=== PATIENT | male | born 1940 | race Caucasian/White ===

== ENCOUNTER → 2019-03-15 14:00 | Outpatient (BNVA) | payer MEDICARE, OTHER, SELFPAY | PROVIDERS: Family Provider Family Medicine; PCP Family Medicine; Visit Provider Anesthesiology | DX: M54.16 Radiculopathy, lumbar region (principal); M47.816 Spondylosis without myelopathy or radiculopathy, lumbar region; M51.36 Other intervertebral disc degeneration, lumbar region; M54.2 Cervicalgia; M25.512 Pain in left shoulder; M19.90 Unspecified osteoarthritis, unspecified site; Z79.891 Long term (current) use of opiate analgesic | CPT/HCPCS: 99214 ==

== ENCOUNTER 2019-09-01 12:55 | Observation (INO) | payer MEDICARE, OTHER, SELFPAY ==
[2019-09-01 13:00] VITALS: BMI 31.6
[2019-09-01 13:04] VITALS: BP 143/80; PULSE 52; RESP 18; TEMP 37.1; O2SAT 97
[2019-09-01 13:11] VITALS: BP 143/80; PULSE 52; RESP 15; O2SAT 94
--- NOTE | 2019-09-01 13:25 | PC.NURSE ---
EKG done at 1325 and shown to ER doctor
--- NOTE | 2019-09-01 13:43 | XRR_ITS ---
PROCEDURE INFORMATION: Exam: XR Chest, 1 View Exam date and time: 09/01/2019 1:55 PM Age: 78 years old Clinical indication: Other: Bradycardia; Prior surgery; Surgery type: Lumbar TECHNIQUE: Imaging protocol: XR of the chest Views: 1 view. COMPARISON: CR Chest 1 [place] [id number] 03/24/2018 12:47 PM FINDINGS: Tubes, catheters and devices: Interval placement of thoracolumbar fixation hardware. Lungs: No acute infiltrate. Minor curvilinear scarring or atelectasis left lung base, unchanged. Pleural space: Unremarkable. No pleural effusion. No pneumothorax. Heart/Mediastinum: Unremarkable. No cardiomegaly. Vasculature: Tortuous aorta, chronic. Bones/joints: Unremarkable. XR/XR chest 1V portable [id number] IMPRESSION: No acute findings.
--- NOTE | 2019-09-01 13:45 | ECG_ITS ---
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 Measurements Intervals [place] Rate: 68 P: 201 AK: 179 QRS: 27 QRSD: 108 T: 10 QT: 425 QTc: 454 Interpretive Statements SINUS RHYTHM POSSIBLE RIGHT VENTRICULAR CONDUCTION DELAY [RSR (QR) IN V1/V2] Compared to ECG 03/24/2018 18:05:32 Sinus bradycardia no longer present First degree AV block no longer present Intraventricular conduction delay no longer present Electronically Signed On 09-01-2019 20:47:14 CDT by Nuria Carreon M.D. [id number]
--- NOTE | 2019-09-01 14:00 | ED_ITS ---
HPI - General Adult General: Chief complaint: General Medical Stated complaint: LOW HEART RATE Time Seen by Provider: 09/01/19 13:04 History of Present Illness: HPI narrative: Patient recently fell in the shower and broke multiple bones. He has home health taking care of him. Today his home health nurse found him to be bradycardic. Patient denies any symptoms whatsoever. Onset (ago): unknown Review of Systems General: Reports: 10 or more systems reviewed and unremarkable except in HPI and below PFSH ED PFSH: Medical History (Updated 09/01/19 @ 15:05 by Deepak Camargo DO) DDD (degenerative disc disease), lumbar Facet syndrome, lumbar Lumbar radicular pain Neck pain Osteoarthritis Pain in left shoulder Surgical History Status post total hip replacement, bilateral Family History Father Hypertension Other CAD (coronary artery disease) Social History Smoking and tobacco status: former smoker Alcohol intake: never Marital status: Physical Exam Const: COMMON NORMALS: no acute distress, healthy appearing and well nourished GENERAL APPEARANCE: cooperative and well developed HENMT: COMMON NORMALS: normocephalic and atraumatic HEAD & SCALP: normal to inspection, normocephalic and atraumatic Eye: GENERAL EYE: appearance normal, both eyes and all related structures Neck/C-Spine: COMMON NORMALS: full ROM, no lymphadenopathy and no meningeal signs GENERAL: Yes normal visual inspection CERVICAL SPINE: Yes cervical ROM normal and Yes normal cervical lordosis Chest: COMMONS NORMALS: normal inspection of the chest and normal palpation of entire chest wall Resp: COMMON NORMALS: normal respiratory effort, clear to auscultation bilaterally and percussion normal AUSCULTATION: clear to auscultation bilaterally PERCUSSION: percussion normal Cardio: JUGULAR VENOUS DISTENTION: no JVD PALPATION: normal PMI RATE: bradycardic RHYTHM: abnormal rhythm GI: COMMON NORMALS: Soft to palpation and No hepatosplenomegaly present INSPECTION: Yes normal to inspection PALPATION: Yes Soft to palpation and Yes No hepatosplenomegaly present PERCUSSION: normal to percussion : COMMON NORMALS: Yes no CVA tenderness BLADDER/KIDNEY EXAM: Yes no CVA tenderness Back/Pelvis: COMMON NORMALS: no CVA tenderness, thoracic and lumbar spine n ormal to inspection and thoraco-lumbar ROM normal Extremity: COMMON NORMALS: normal to inspection, full ROM and capillary refill normal Neuro: MENINGEAL SIGNS: Yes no meningeal signs Skin: COMMON NORMALS: no rashes or lesions noted, no wounds and turgor normal GENERAL SKIN EXAM: no rashes or lesions noted, elasticity normal and turgor normal LESIONS: no lesions RASHES: no rashes TRAUMA: no lacerations or abrasions HAIR: normal NAILS: normal Course Vital Signs: Vital signs: Vital Signs Temperature 98.7 F 09/01/19 13:04 Pulse Rate 52 L 09/01/19 13:11 Respiratory Rate 15 09/01/19 13:11 Blood Pressure 143/80 09/01/19 13:11 Pulse Oximetry 94 09/01/19 13:11 [facility] - General Adult Lab Data: Labs: Lab Results 09/01/19 09/01/19 09/01/19 Range/Units 13:30 13:30 13:30 WBC 8.3 (4.0-10.0) 10^3/ uL RBC 3.86 L (4.1-5.3) 10^6/u L Hgb 12.1 (11.7-16.6) g/dL Hct 38.6 L (42.0-52.0) % MCV 100.0 H (80-94) fL MCH 31.3 (28.0-34.0) pg MCHC 31.3 (30.0-36.0) g/dL RDW 14.3 (12.1-15.1) % Plt Count 292 (130-400) 10^3/c mm MPV 10.6 H (7.4-10.4) fL Neut % (Auto) 61.4 % Lymph % (Auto) 20.2 % [place] % (Auto) 9.3 % Eos % (Auto) 7.7 % Baso % (Auto) 0.7 % Neut # (Auto) 5.1 (1.8-7.7) 10^3/u L Lymph # (Auto) 1.7 (0.8-4.8) 10^3/u L [place] # (Auto) 0.8 (0.2-0.9) 10^3/u L Eos # (Auto) 0.6 (0.0-0.8) 10^3/u L Baso # (Auto) 0.1 (0.0-0.1) 10^3/u L Nucleated RBC % (a uto) 0 % Nucleated RBCs # 0.0 /100WBC PT 12.70 (10.5-13.3) SECO NDS INR 0.93 (0.8-1.2) Sodium 139 (136-145) mmol/L Potassium 4.5 (3.5-5.1) mmol/L Chloride 103 (98-107) mmol/L Carbon Dioxide 26 (22-29) mmol/L Anion Gap 14.5 (5-19) BUN 12 (8-23) mg/dL Creatinine 0.8 (0.7-1.2) mg/dL Glucose 151 H (65-115) mg/dL Calculated Osmolal ity 287 (285-295) mOsm/k g Lactate (0.5-2.2) mmol/L Calcium 9.6 (8.5-10.5) mg/dL Magnesium 2.0 (1.7-2.3) mg/dL Total Bilirubin 0.3 (0.15-1.2) mg/dL AST 13 (0-40) U/L ALT 10 (0-41) U/L Alkaline Phosphata se 111 (40-130) IU/L Troponin T Baselin e (0-15) ng/L NT-Pro-B Natriuret Pep 710 H (0-450) pg/mL Total Protein 6.7 (6.6-8.7) g/dL Albumin 3.8 (3.5-5.2) g/dL Globulin 2.9 (1.3-4.6) g/dL TSH 1.54 (0.27-4.20) uIU/ mL 09/01/19 09/01/19 Range/Units 13:30 14:13 WBC (4.0-10.0) 10^3/ uL RBC (4.1-5.3) 10^6/u L Hgb (11.7-16.6) g/dL Hct (42.0-52.0) % MCV (80-94) fL MCH (28.0-34.0) pg MCHC (30.0-36.0) g/dL RDW (12.1-15.1) % Plt Count (130-400) 10^3/c mm MPV (7.4-10.4) fL Neut % (Auto) % Lymph % (Auto) % [place] % (Auto) % Eos % (Auto) % Baso % (Auto) % Neut # (Auto) (1.8-7.7) 10^3/u L Lymph # (Auto) (0.8-4.8) 10^3/u L [place] # (Auto) (0.2-0.9) 10^3/u L Eos # (Auto) (0.0-0.8) 10^3/u L Baso # (Auto) (0.0-0.1) 10^3/u L Nucleated RBC % (a uto) % Nucleated RBCs # /100WBC PT (10.5-13.3) SECO NDS INR (0.8-1.2) Sodium (136-145) mmol/L Potassium (3.5-5.1) mmol/L Chloride (98-107) mmol/L Carbon Dioxide (22-29) mmol/L Anion Gap (5-19) BUN (8-23) mg/dL Creatinine (0.7-1.2) mg/dL Glucose (65-115) mg/dL Calculated Osmolal ity (285-295) mOsm/k g Lactate 1.3 (0.5-2.2) mmol/L Calcium (8.5-10.5) mg/dL Magnesium (1.7-2.3) mg/dL Total Bilirubin (0.15-1.2) mg/dL AST (0-40) U/L ALT (0-41) U/L Alkaline Phosphata se (40-130) IU/L Troponin T Baselin e 28 H (0-15) ng/L NT-Pro-B Natriuret Pep (0-450) pg/mL Total Protein (6.6-8.7) g/dL Albumin (3.5-5.2) g/dL Globulin (1.3-4.6) g/dL TSH (0.27-4.20) uIU/ mL Discharge Plan Discharge Patient Disposition: Admitted As Inpatient Clinical Impression: Cardiac dysrhythmia Qualifiers: Arrhythmia type: unspecified cardiac arrhythmia Qualified Code(s): I49.9 - Cardiac arrhythmia, unspecified Condition: Fair Referrals: Higinio Nelson DO [Primary Care Provider] - Coding Level of Care Code ED Care Director for Chg Fwd Exam Comprehensive
[2019-09-01 14:01] LABS: Basophils # 0.1 10^3/uL (0.0-0.1); Basophils % 0.7 %; Eosinophils # 0.6 10^3/uL (0.0-0.8); Eosinophils % 7.7 %; Hematocrit 38.6 % (42.0-52.0); Hemoglobin 12.1 g/dL (11.7-16.6); Lymphocytes # 1.7 10^3/uL (0.8-4.8); Lymphocytes % 20.2 %; Mean Corpuscular HGB Conc 31.3 g/dL (30.0-36.0); Mean Corpuscular Hemoglobin 31.3 pg (28.0-34.0); Mean Platelet Volume 10.6 fL (7.4-10.4); Monocytes # 0.8 10^3/uL (0.2-0.9); Monocytes % 9.3 %; Neutrophils # 5.1 10^3/uL (1.8-7.7); Neutrophils % 61.4 %; Nucleated Red Blood Cells % 0 %; Platelet Count 292 10^3/cmm (130-400); Red Blood Count 3.86 10^6/uL (4.1-5.3); Red Cell Distribution Width 14.3 % (12.1-15.1); White Blood Count 8.3 10^3/uL (4.0-10.0)
[2019-09-01 14:05] LABS: INR 0.93 (0.8-1.2)
[2019-09-01 14:16] LABS: Troponin(5th) Baseline 28 ng/L (0-15)
[2019-09-01 14:21] LABS: Alanine Aminotransferase 10 U/L (0-41); Albumin Level 3.8 g/dL (3.5-5.2); Alkaline Phosphatase 111 IU/L (40-130); Anion Gap 14.5 (5-19); Aspartate Amino Transferase 13 U/L (0-40); Blood Urea Nitrogen 12 mg/dL (8-23); Calcium 9.6 mg/dL (8.5-10.5); Carbon Dioxide 26 mmol/L (22-29); Chloride 103 mmol/L (98-107); Globulin 2.9 g/dL (1.3-4.6); Glucose 151 mg/dL (65-115); NT Pro B Type Natriuretic Pept 710 pg/mL (0-450); Osmolality Calculated 287 mOsm/kg (285-295); Potassium 4.5 mmol/L (3.5-5.1); Sodium 139 mmol/L (136-145); Thyroid Stimulating Hormone 1.54 uIU/mL (0.27-4.20); Total Bilirubin 0.3 mg/dL (0.15-1.2); Total Protein 6.7 g/dL (6.6-8.7)
[2019-09-01 14:44] LABS: Lactate (Lactic Acid level) 1.3 mmol/L (0.5-2.2)
--- NOTE | 2019-09-01 15:37 | PM.HP ---
Providers/Chief Complaint Primary Care Provider: Higinio Nelson DO Chief Complaint: LOW HEART RATE History of Present Illness Deepak Larkin is a 78 year old male with past medical history of hypertension, type 2 diabetes mellitus, A. 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 Patient denies of having any nausea, vomiting, chest pain, headache, dizziness but complains of occasional weakness. In the ER apparently on the telemetry as per the ER physician patient was having occasional blocks with Wenckebach. Unfortunately no EKGs available of the same. Hospitalist service was asked for patient's admission under observation. Blood work in the OR showed a normal white count of 8.3, hemoglobin of 12.1, no left left shift, INR of 0.9, sodium of 139, potassium of 4.5, creatinine of 0.8, lactate of 1.3, normal liver functions, baseline troponin of 28 with 2-hour delta of 6, proBNP of 710. Review of Systems Const: Denies: fever(s), chills, body aches, change in appetite, malaise, night sweats, diaphoresis, change in sleep pattern, daytime sleepiness or snoring Eyes: Denies: change in vision, blurry vision, photophobia, eye discomfort or eye discharge ENMT: Denies: throat pain, enlarged tonsils, hoarseness, mouth pain, oral sores, dry mouth, tinnitus, nasal congestion or post nasal drip Card: Denies: chest pain, palpitations, irregular heart rhythm, edema, swelling of feet/ankles, lightheadedness, syncope, pre-syncope, dyspnea on exertion, orthopnea, leg pain with exertion or acrocyanosis Resp: Denies: dyspnea, productive cough, non-productive cough, wheezing, stridor, pain on inspiration, change in phlegm color, hemoptysis or chest congestion GI: Denies: abdominal pain, nausea, vomiting, hematemesis, coffee ground emesis, dysphagia, heartburn, diarrhea, constipation, bloating, GI cramping, change in bowel habits, pain on defecation, hematochezia or melena : Denies: flank pain, difficulty urinating, dysuria, urinary frequency, urinary urgency, urinary hesitancy, urinary dribbling, difficulty starting urination, change in urine stream, nocturia or hematuria Musc: Denies: neck pain, back pain, extremity pain, joint pain, joint swelling, joint redness, joint stiffness or limited range of motion Neuro: Denies: headache(s), numbness in extremities, weakness in extremities, sensory changes, lack of coordination, difficulty walking, frequent falls, dizziness, vertigo, confusion, Slurred speech present, difficulty communicating thoughts or seizure-like activity Psych: Denies: anxiety, depression, mood swings, panic attacks, hopelessness or irritability Endo: Denies: polyuria, polydipsia, tired all the time, cold intolerance, excessive sweating, flushing or heat intolerance Anam/Lymph: Denies: easy bruising or easy bleeding All/Imm: Denies: tongue swelling, facial swelling or acute wheezing Medications/Allergies Home Medications Medication Instructions Recorded Confirmed Last Taken Type amlodipine 10 mg tablet 10 mg PO ONCE 03/14/19 09/01/19 08/31/19 History aspirin 325 mg tablet 325 mg PO DAILY tab 03/14/19 09/01/19 09/01/19 History celecoxib 200 mg capsule 200 mg PO DAILY cap 03/14/19 09/01/19 08/31/19 History losartan 50 mg tablet 50 mg PO BID 03/14/19 09/01/19 08/31/19 History multivitamin 1 cap PO QAM 03/14/19 09/01/19 Unknown History nitroglycerin 0.4 mg sublingual 0.4 mg SUBLINGUAL Q5M PRN 03/14/19 09/01/19 Unknown History tablet omega-3 fatty acids 1,000 mg 1,000 mg PO BID 03/14/19 09/01/19 Unknown History capsule cyclobenzaprine 10 mg tablet 10 mg PO TID 30 Days #90 tab 03/15/19 09/01/19 08/31/19 Rx oxycodone 10 mg tablet 10 mg PO TID PRN 30 Days #90 tab 03/15/19 09/01/19 08/31/19 Rx tramadol 50 mg tablet 50 mg PO TID PRN 30 Days #90 tab 03/15/19 09/01/19 08/31/19 Rx insulin NPH and regular human See Rx Instructions .ROUTE .COMPLEX 09/01/19 09/01/19 Unknown History [Novolin 70/30 U-100 Insulin] Allergies Allergy/AdvReac Type Severity Reaction Status Date / Time JOE Inhibitors Allergy Unknown Verified 09/01/19 15:19 Vaywtwo-Lik-Lyb Reductase Allergy Unknown Verified 09/01/19 15:19 Inhibitor PFSH Acute PFSH: Medical History (Updated 09/01/19 @ 17:02 by Andrew Quintana MD) Aftercare following bilateral hip joint replacement surgery Atrial fibrillation AV block Chronic nonmalignant pain DDD (degenerative disc disease), lumbar Diabetes mellitus Facet syndrome, lumbar Hypertension Lumbar radicular pain Morbid obesity Muscle spasm of back Neck pain Osteoarthritis Other specified diseases of gallbladder Pain in left shoulder Psoriatic arthritis Sleep apnea Type 2 diabetes mellitus Surgical History (Updated 09/01/19 @ 15:39 by Mika Galarza MD) S/P cholecystectomy Status post total hip replacement, bilateral Family History Father Hypertension Other CAD (coronary artery disease) Social History Smoking and tobacco status: former smoker Alcohol intake: never Marital status: Vitals/I&O/Wt Last Vital Signs Temp 98.7 F 09/01/19 13:04 Pulse 52 L 09/01/19 13:11 Resp 15 09/01/19 13:11 BP 143/80 09/01/19 13:11 Pulse Ox 94 09/01/19 13:11 Weight last 48 hrs Weight 108.862 kg Physical Exam Narrative: EXAM NARRATIVE: General: No acute distress, AO x3, morbid obesity HEENT: PERRLA, pupils bilaterally equal and reactive Chest: Normal vesicular breath sounds, no added sounds, equal good air entry bilaterally CVS: S1-S2 regular, no murmurs, no tachycardia, no gallops, no rubs Abdomen: Soft, nontender, no organomegaly, bowel sounds present Neuro: No focal deficits, no facial deformity, AO x3, power 5/5 in all limbs Data : 09/01/19 13:30 09/01/19 13:30 A&P Assessment and plan (1) AV block: Status: Acute (2) Type 2 diabetes mellitus: Status: Acute (3) Hypertension: Status: Acute (4) Chronic nonmalignant pain: Status: Acute (5) Atrial fibrillation: Status: Acute Additional A&P Information AV block: Patient is not on any rate limiting drugs at present. He has a history of having similar episode last year but at that time he was on beta-clemente. Once beta-clemente was stopped he had converted to type I. EKG at present looks pretty much the same. Cardiology has been consulted by the ER. Most likely will admit patient under observation. Will monitor for advanced heart block, dizziness, chest pain, shortness of breath along with that. And if any present we will request for most likely pacemaker. For now we will monitor the patient. Hypertension: Continue home dose of amlodipine, losartan. Goal blood pressure 140/90 mmHg. Type 2 diabetes mellitus insulin sliding scale at high-dose AC and at bedtime. Carb consistent diet. Continue chronic pain medications. Full code. Cardiac carb consistent diet. Lovenox for DVT prophylaxis Attestations Medical Necessity Statement*: Observation. Less than 2 midnight for asymptomatic heart block Time Spent in Patient Care: Greater than 35 minutes (>than 50% of time spent in counselling and/or direct pt care on unit). Coding Level of Care Code Acute Printing Assistant for Jennifer Stafford Diagnoses AV block I44.30 Type 2 diabetes mellitus E11.9 Hypertension I10 Chronic nonmalignant pain G89.29 Atrial fibrillation I48.91
[2019-09-01 15:44] VITALS: BP 139/65; PULSE 68; RESP 21; O2SAT 94
--- NOTE | 2019-09-01 15:45 | ECG_ITS ---
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 Measurements Intervals [place] Rate: 57 P: MT: -1 QRS: 35 QRSD: 109 T: 28 QT: 441 QTc: 430 Interpretive Statements Probable A-V dissociation, possible third-degree heart block ABNORMAL RHYTHM ECG Compared to ECG 09/01/2019 13:30:53 Sinus rhythm no longer present Electronically Signed On 09-02-2019 7:26:40 CDT by Andrew Quintana M.D. [id number]
--- NOTE | 2019-09-01 16:16 | PC.NURSE ---
EKG done at 1615 and shown to ER doctor
[2019-09-01 16:44] LABS: Troponin 5 2HR 34.07 ng/L (0-15); Troponin 5 2HR Delta 6.07 ABS# (0-10)
--- NOTE | 2019-09-01 16:56 | P.CONIM_ITS ---
Providers/Reason For Consult Consulting Physican/Specialty*: Cardiovascular medicine Reason for Consult*: Bradycardia Primary Care Provider: Higinio Nelson DO History of Present Illness History of Present Illness Deepak Larkin is a 78 year old male who is being admitted because of a low heart rate. He is well-known to me from previous hospital stays and from a clinic visit or 2. About 18 months ago he was in the hospital with type II second- degree AV block. At that time his beta-clemente was discontinued and the higher degree AV block resolved. He did have some second-degree AV block type I. He has never had a syncopal episode. All of this was discovered inadvertently. Over the last 6 to 8 months he has been lost to follow-up. He still does not take any kind of AV alonzo blocking agents. In April of this year he fell off his roof from a height of about 12 feet fracturing his pelvis, several ribs, his back and had a head injury. He spent several weeks to almost 3 months in bed. He lost a lot of muscle mass and has been weak. He gets physical therapy at home. Today the physical therapist apparently noticed that his heart rate was in the 40s. The physical therapist called his office and was told to call an ambulance and bring the patient to the hospital. It is noteworthy that the patient is completely asymptomatic without dizziness, lightheadedness or other problems such as syncope. Since he has been in the emergency room he has had an EKG and several rhythm strips. He has sinus rhythm with the occasional long first- degree AV block. There may be some second-degree AV block type I but I see no high degree AV block on any of the strips or EKGs that we have so far. At some point in the chart there mentions atrial fibrillation but I do not recall ever seeing any documentation that he has atrial fibrillation. He is not anticoagulated. He also does not have any history of coronary disease and had a stress test a year or more ago which did not reveal any ischemia. He has hypertension and diabetes as well as morbid obesity and sleep apnea. He is apparently being admitted because of the bradycardia and I have been asked to see him. Meds/Allergies Home Medications and Allergies Home Medications Medication Instructions Recorded Confirmed Last Taken Type amlodipine 10 mg tablet 10 mg PO ONCE 03/14/19 09/01/19 08/31/19 History aspirin 325 mg tablet 325 mg PO DAILY tab 03/14/19 09/01/19 09/01/19 History celecoxib 200 mg capsule 200 mg PO DAILY cap 03/14/19 09/01/19 08/31/19 History losartan 50 mg tablet 50 mg PO BID 03/14/19 09/01/19 08/31/19 History multivitamin 1 cap PO QAM 03/14/19 09/01/19 Unknown History nitroglycerin 0.4 mg sublingual 0.4 mg SUBLINGUAL Q5M PRN 03/14/19 09/01/19 Unknown History tablet omega-3 fatty acids 1,000 mg 1,000 mg PO BID 03/14/19 09/01/19 Unknown History capsule cyclobenzaprine 10 mg tablet 10 mg PO TID 30 Days #90 tab 03/15/19 09/01/19 08/31/19 Rx oxycodone 10 mg tablet 10 mg PO TID PRN 30 Days #90 tab 03/15/19 09/01/19 08/31/19 Rx tramadol 50 mg tablet 50 mg PO TID PRN 30 Days #90 tab 03/15/19 09/01/19 08/31/19 Rx insulin NPH and regular human See Rx Instructions .ROUTE .COMPLEX 09/01/19 09/01/19 Unknown History [Novolin 70/30 U-100 Insulin] Allergies Allergy/AdvReac Type Severity Reaction Status Date / Time JOE Inhibitors Allergy Unknown Verified 09/01/19 15:19 Wnidavt-Vna-Wdx Reductase Allergy Unknown Verified 09/01/19 15:19 Inhibitor PFSH Acute PFSH: Medical History (Updated 09/01/19 @ 17:02 by Andrew Quintana MD) Aftercare following bilateral hip joint replacement surgery Atrial fibrillation AV block Chronic nonmalignant pain DDD (degenerative disc disease), lumbar Diabetes mellitus Facet syndrome, lumbar Hypertension Lumbar radicular pain Morbid obesity Muscle spasm of back Neck pain Osteoarthritis Other specified diseases of gallbladder Pain in left shoulder Psoriatic arthritis Sleep apnea Type 2 diabetes mellitus Surgical History (Updated 09/01/19 @ 15:39 by Mika Galarza MD) S/P cholecystectomy Status post total hip replacement, bilateral Family History Father Hypertension Other CAD (coronary artery disease) Social History (Reviewed 09/01/19 @ 14:01 by MELISSA Sweeney Smoking and tobacco status: former smoker Alcohol intake: never Marital status: Vitals/I&O/Wt Last Vital Signs Temp 98.7 F 09/01/19 13:04 Pulse 68 09/01/19 15:44 Resp 21 H 09/01/19 15:44 BP 139/65 09/01/19 15:44 Pulse Ox 94 09/01/19 15:44 Weight last 48 hrs Weight 240 lb Physical Exam Const: COMMON NORMALS: no acute distress, patient oriented x3 and alert GENERAL APPEARANCE: cooperative NUTRITIONAL APPEARANCE: obese HENMT: COMMON NORMALS: normocephalic, atraumatic, hearing grossly normal bilaterally, external ears normal, EAC's normal, TM's normal bilaterally, Normal external nose present, Normal nasal mucous membranes and turbinates present, moist oral mucous membranes, oropharynx normal, dentition normal and gingiva normal HEAD & SCALP: normocephalic and atraumatic NOSE: Normal external n ose present and Normal nasal mucous membranes and turbinates present EXTERNAL EAR: Yes external ears normal EXTERNAL AUDITORY CANAL: EAC's normal TYMPANIC MEMBRANE: TM's normal bilaterally Neck/C-Spine: COMMON NORMALS: no JVD Chest: COMMONS NORMALS: normal inspection of the chest Resp: COMMON NORMALS: normal respiratory effort, No retractions, No use of accessory muscles, clear to auscultation bilaterally and percussion normal AUSCULTATION: clear to auscultation bilaterally PERCUSSION: percussion normal Cardio: COMMON NORMALS: no JVD, regular rate, regular rhythm, S1 normal heart sound present, S2 normal heart sound present, No gallops present (Cardio), No clicks present (Cardio), No murmurs present (Cardio), No rub (Cardio) and Peripheral pulses 2+ throughout RATE: regular rate RHYTHM: regular rhythm HEART SOUNDS: S1 normal heart sound present and S2 normal heart sound present PERIPHERAL PULSES: Peripheral pulses 2+ throughout GI: COMMON NORMALS: Normal to inspection, nondistended, normoactive bowel sounds present, Soft to palpation, non-tender, No hepatosplenomegaly present, no masses and no bruits PALPATION: Yes Soft to palpation and Yes No hepatosplenomegaly present Neuro: COMMON NORMALS: patient oriented x3, CN's II-XII intact bilaterally, moves all extremities, no focal motor deficits, no sensory deficits noted and deep tendon reflexes 2+ bilaterally SENSORIUM/ORIENTATION: Yes alert Skin: COMMON NORMALS: no rashes or lesions noted GENERAL SKIN EXAM: no rashes or lesions noted Data Other Data: Other data: EKG reveals a sinus rhythm with a right ventricular conduction delay or right bundle branch block but no high degree AV block. The second EKG reveals sinus rhythm with occasional long first-degree AV block and possibly brief periods of Wenke Bach. Troponin is 28. BNP 710. A&P Assessment and plan (1) AV block: Status: Acute (2) Type 2 diabetes mellitus: Status: Acute (3) Hypertension: Status: Acute (4) Chronic nonmalignant pain: Status: Acute (5) Neck pain: Status: Chronic (6) Lumbar radicular pain: Status: Chronic (7) Facet syndrome, lumbar: Status: Chronic (8) Morbid obesity: Status: Acute (9) Sleep apnea: Status: Acute Additional A&P Information At this point I see nothing that requires a pacemaker. At worst he has second- degree AV block type II. I do not see any QRS complex and does not have a P wave associated. To my knowledge she is not on any AV alonzo blocking agents. He has no symptoms such as dizziness, lightheadedness, presyncope or syncope. I would monitor him overnight and if he has no high degree block send him home. Consult Attestations Medical Necessity Statement: Not applicable Coding Level of Care Code Acute Critical Power Technician for [facility] Fwd History Detailed Exam Detailed Medical Decision Making Moderate Complexity Diagnoses AV block I44.30 Type 2 diabetes mellitus E11.9 Hypertension I10 Chronic nonmalignant pain G89.29 Neck pain M54.2 Lumbar radicular pain M54.16 Facet syndrome, lumbar M47.816 Morbid obesity E66.01 Sleep apnea G47.30
[2019-09-01 19:20] VITALS: BP 154/85; PULSE 58; RESP 19; O2SAT 96
--- NOTE | 2019-09-01 19:45 | ECG_ITS ---
[facility] Test Date: 2019-09-01 Pat Name: Deepak Larkin Department: Room: Gender: Male Core Dipper: : 1940 Requested By: Deepak Muhammad Order Number: [id number] Hansa MD: Andrew Quintana M.D. Measurements Intervals [place] Rate: 63 P: CT: -1 QRS: 27 QRSD: 125 T: 12 QT: 449 QTc: 460 Interpretive Statements Probable A-V dissociation, possible third-degree heart block MODERATE INTRAVENTRICULAR CONDUCTION DELAY [110+ ms QRS DURATION] ABNORMAL RHYTHM ECG Compared to ECG 09/01/2019 16:14:06 Intraventricular conduction delay now present Electronically Signed On 09-02-2019 7:26:58 CDT by Andrew Quintana M.D. [email or web address]
[2019-09-01 20:00] VITALS: BP 137/85; PULSE 64; RESP 18; TEMP 37.1; O2SAT 97
[2019-09-01 20:11] LABS: D Dimer 2.21 ug/mIFEU (0-0.59)
[2019-09-01 20:12] LABS: Troponin 5 6HR 28.65 ng/L (0-15); Troponin 5 6HR Delta 0.65 ng/L (0-12)
--- NOTE | 2019-09-01 20:22 | PC.NURSE ---
EKG done at 1952 and shown to ER doctor
--- NOTE | 2019-09-01 20:29 | PC.NURSE ---
Blood glucose is 118, nurse and doctor notified
[2019-09-01 20:32] LABS: Glucose Point of Care 118 mg/dL (70-110)
[2019-09-01 20:35] VITALS: BP 156/76; PULSE 60; RESP 16; O2SAT 97
[2019-09-01 20:39] LABS: Thyroid Stimulating Hormone 1.24 uIU/mL (0.27-4.20)
--- NOTE | 2019-09-01 23:00 | PC.NURSE ---
Pt to room from ER via stretcher. Unable to assess pt's skin completely. Pt stated it hurt too bad to roll over for me to see his backside but did state his butt does hurt and he wanted some cream for it. Placed moisture barrier at bedside. Will attempt to assess again later.
[2019-09-01] MEDS: enoxaparin 40 mg/0.4 mL Syringe SUBCUT (23:56)
[2019-09-01] MEDS: cyclobenzaprine 10 mg Tablet PO (23:56)
[2019-09-01] MEDS: losartan 50 mg Tablet PO (23:56)
[2019-09-01] MEDS: omega-3 fatty acids 1,000 mg Capsule 1000 MG PO (23:56)
[2019-09-02] VITALS (11 sets, daily range): BP systolic 129–157; BP diastolic 69–87; PULSE 66–82; RESP 11–20; TEMP 36.8–37.3; O2SAT 92–96
[2019-09-02 02:57] LABS: Iron 53 ug/dL (59-158)
[2019-09-02] MEDS: ipratropium-albuterol 3 mL Neb INHALATION ×2 (04:08→09:33)
[2019-09-02 04:28] LABS: Basophils # 0.1 10^3/uL (0.0-0.1); Basophils % 0.6 %; Eosinophils # 0.6 10^3/uL (0.0-0.8); Hematocrit 39.9 % (42.0-52.0); Hemoglobin 12.9 g/dL (11.7-16.6); Lymphocytes # 1.8 10^3/uL (0.8-4.8); Lymphocytes % 22.3 %; Mean Corpuscular HGB Conc 32.3 g/dL (30.0-36.0); Mean Corpuscular Hemoglobin 31.9 pg (28.0-34.0); Mean Corpuscular Volume 98.8 fL (80-94); Mean Platelet Volume 10.3 fL (7.4-10.4); Monocytes # 0.7 10^3/uL (0.2-0.9); Monocytes % 8.4 %; Neutrophils # 4.8 10^3/uL (1.8-7.7); Neutrophils % 61.2 %; Nucleated Red Blood Cells % 0 %; Platelet Count 254 10^3/cmm (130-400); Red Blood Count 4.04 10^6/uL (4.1-5.3); Red Cell Distribution Width 14.2 % (12.1-15.1); White Blood Count 7.8 10^3/uL (4.0-10.0)
[2019-09-02 04:49] LABS: Alanine Aminotransferase 7 U/L (0-41); Albumin Level 3.6 g/dL (3.5-5.2); Alkaline Phosphatase 101 IU/L (40-130); Anion Gap 15.8 (5-19); Aspartate Amino Transferase 12 U/L (0-40); Blood Urea Nitrogen 10 mg/dL (8-23); Calcium 9.6 mg/dL (8.5-10.5); Carbon Dioxide 25 mmol/L (22-29); Chloride 106 mmol/L (98-107); Globulin 3.2 g/dL (1.3-4.6); Glucose 149 mg/dL (65-115); Osmolality Calculated 295 mOsm/kg (285-295); Phosphorus 3.7 mg/dL (2.5-4.5); Potassium 3.8 mmol/L (3.5-5.1); Sodium 143 mmol/L (136-145); Total Bilirubin 0.5 mg/dL (0.15-1.2); Total Protein 6.8 g/dL (6.6-8.7)
[2019-09-02 04:50] LABS: Estmated Average Glucose 137; Hemoglobin A1C 6.4 % (4.0-6.0)
[2019-09-02 06:40] LABS: Glucose Point of Care 141 mg/dL (70-110)
[2019-09-02 07:09] LABS: Percent Saturation 21.9 % (20-50); Total Iron Binding Capacity 242 mcg/dl; Unsaturated Iron Binding 189 ug/dL (112-347)
--- NOTE | 2019-09-02 07:10 | P.PN_ITS ---
Subjective Subjective: Interval history: Deepak is had an uneventful night. There are couple strips which show third-degree AV block with a narrow complex escape rhythm. He remains asymptomatic with these and has a normal blood pressure. Vitals/I&O/Wt Last Vital Signs Temp 98.3 F 09/02/19 04:00 Pulse 66 09/02/19 04:14 Resp 17 09/02/19 04:09 BP 129/72 09/02/19 04:00 Pulse Ox 96 09/02/19 04:14 09/01/19 09/02/19 09/02/19 22:59 06:59 14:59 Intake Total 0 / 0 200 / 200 Output Total 0 / 0 700 / 700 Balance 0 / 0 -500 / -500 Weight last 48 hrs Weight 287 lb 3.2 oz Weight 240 lb Physical Exam Narrative: EXAM NARRATIVE: GENERAL: In general he looks and feels well HEENT: Exam within normal limits. NECK: Supple without jugular vein distention. The carotid upstroke is normal without bruits. BACK: Exam normal. LUNGS: Clear. HEART: Regular rate and rhythm. ABDOMEN: Benign without organomegaly or tenderness. EXTREMITIES: No edema. NEUROLOGIC: Exam normal. SKIN: Unremarkable. Data : 09/02/19 03:50 09/02/19 03:50 A&P Assessment and plan (1) Sleep apnea: Status: Acute (2) Morbid obesity: Status: Acute (3) AV block: Status: Acute (4) Type 2 diabetes mellitus: Status: Acute (5) Hypertension: Status: Acute Additional A&P Information Now that third-degree heart block has been seen he will need a pacemaker. This clearly does not need to be done while he is in the hospital right now. It is a holiday weekend and so he may go home and we will schedule this as an outpatient for him. My office will call him on Thursday to set this up electively. He wishes to go home because he spent 5 months in a fci after the fall in April and is not interested in staying in the hospital to wait. I think it is safe to go home since his blood pressure is fine and he is not having any symptoms. 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
[2019-09-02] MEDS: aspirin 325 mg Tablet PO (09:50)
[2019-09-02] MEDS: CELEcoxib 200 mg Capsule PO (09:50)
[2019-09-02] MEDS: omega-3 fatty acids 1,000 mg Capsule 1000 MG PO (09:50)
[2019-09-02] MEDS: amlodipine 10 mg Tablet PO (09:50)
[2019-09-02] MEDS: losartan 50 mg Tablet PO (09:50)
[2019-09-02] MEDS: cyclobenzaprine 10 mg Tablet PO (09:50)
--- NOTE | 2019-09-02 09:50 | PC.CHAP ---
Pastoral Care Encounter/Spiritual Assessment Type of Contact [] Declined open hearth laborer visit [] Patient/Family/Request visit [] Outpatient visit [] Follow-up visit [] Physician referral [] Code/Alert [x] Routine visit [] Staff referral [] Actively dying [] Patient sleeping [] Family support [] [] Out of room [] Palliative care [] [] Receiving care in room [] Pre-surgical visit [] Trauma [] Long length of stay [] ICU visit [] Other: Relational/Emotional Strength [] Patient feels connected with others/family/visitors/staff [] Distress [] Loneliness/isolation [] Abandonment Spirituality of Patient [] Person of Stefani [] Attends Uatsdin of their Stefani [] Believes in Prayer [] Reads Bible or Zoroastrian materials [] There are Spiritual issues to be addressed Sludge Filtration Attendant Interventions [x] Prayer [x] Active listening [x] Non-anxious presence [x] Spiritual/emotional support [] Crisis/trauma care [] Spiritual counseling [] Bereavement support [] Provided bereavement packet [] Provided Bible/devotional materials [] Provided toy/stuffed animal, coloring book to patient or family member [] Provided Communion [] Anointing/[place] [] Salvation [x] Completed spiritual assessment [] Other: Impact on Illness or Injury [] Angry [] Fearful [] Anxious [] Often cries [] Exhaustion [] Unable to work [] Unable to attend mormonism [] Unable to walk/stand [] Unable to read [] Unable to drive [] Unable to eat/drink [] Unable to sleep [] Unable to be with family [] Patient intubated [] Other: Summary Patient feeling stronger, resting well Time spent with patient 10 min
--- NOTE | 2019-09-02 09:51 | P.DS_ITS ---
Discharge Providers Date of Admission: 09/01/19 15:06 Date of Discharge: September 02, 2019 Attending Provider at Admission: Mika Galarza MD Attending Provider at Discharge: Mika Galarza MD Consults: Cardiology: Dr. Quintana Primary Care Provider: Higinio Nelson DO Diagnoses at Discharge Discharge Diagnosis (1) Sleep apnea: Status: Acute (2) Morbid obesity: Status: Acute (3) AV block: Status: Acute (4) Type 2 diabetes mellitus: Status: Acute (5) Hypertension: Status: Acute Reason for Visit Reason for Visit: LOW HEART RATE Hospital Course Discharge Summary: Deepak Larkin is a 78 year old male with past medical hist ory of hypertension, type 2 diabetes mellitus, A. 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 Patient denies of having any nausea, vomiting, chest pain, headache, dizziness but complains of occasional weakness. In the ER apparently on the telemetry as per the ER physician patient was having occasional blocks with Wenckebach. Unfortunately no EKGs available of the same. Hospitalist service was asked for patient's admission under observation. Blood work in the ER showed a normal white count of 8.3, hemoglobin of 12.1, no left left shift, INR of 0.9, sodium of 139, potassium of 4.5, creatinine of 0.8, lactate of 1.3, normal liver functions, baseline troponin of 28 with 2-hour delta of 6, proBNP of 710. Cardiology was consulted. Patient was admitted under observation. Overnight patient remained stable without having any nausea, vomiting, chest pain, dizziness. Overnight his telemetry showed few strips going into third-degree AV block. This was confirmed with cardiology. Patient needs a pacemaker now that the third-degree AV block is evident. Patient would most likely get the pacemaker coming week. Patient did not want to wait for so long while being in hospital and would like to go home. Possible discharge was confirmed with cardiology. As per cardiology it is safe for patient to go home since his blood pressures are fine and he is not having any symptoms. He is been discharged hemodynamically stable condition and patient will be getting a call on Thursday from cardiology office to set up appointment for pacemaker implantation. Physical Exam Narrative: EXAM NARRATIVE: General: No acute distress, AO x3, morbid obesity HEENT: PERRLA, pupils bilaterally equal and reactive Chest: Normal vesicular breath sounds, no added sounds, equal good air entry bilaterally CVS: S1-S2 regular, no murmurs, no tachycardia, no gallops, no rubs Abdomen: Soft, nontender, no organomegaly, bowel sounds present Neuro: No focal deficits, no facial deformity, AO x3, power 5/5 in all limbs Discharge Data Data Completed and Pending: Completed Studies During Hospitalization Category Date Time Status XR chest 1V selena ble [id number] Urgent Exams 09/01/19 13:43 Completed Pending at discharge Category Date Time Status MRSA by PCR De ne Lab 09/02/19 03:55 Received Labs from last 24 hours 09/02/19 09/02/19 09/02/19 06:36 03:50 03:50 WBC RBC Hgb Hct MCV MCH MCHC RDW Plt Count MPV Neut % (Auto) Lymph % (Auto) Edwards % (Auto) Eos % (Auto) Baso % (Auto) Neut # (Auto) Lymph # (Auto) Edwards # (Auto) Eos # (Auto) Baso # (Auto) Nucleated RBC % (a uto) Nucleated RBCs # PT INR D-Dimer Sodium 143 Potassium 3.8 Chloride 106 Carbon Dioxide 25 Anion Gap 15.8 BUN 10 Creatinine 0.7 Glucose 149 H POC Glucose 141 Estimat Average Gl ucose 137 Hemoglobin A1c 6.4 H Calculated Osmolal ity 295 Lactate Calcium 9.6 Phosphorus 3.7 Magnesium 2.0 Iron TIBC % Saturation Unsat Iron Binding Total Bilirubin 0.5 AST 12 ALT 7 Alkaline Phosphata se 101 Troponin I 6 Hour Troponin I Hi Sens Del Troponin T Baselin e Troponin T 120 Min [place] Delta Troponin T NT-Pro-B Natriuret Pep Total Protein 6.8 Albumin 3.6 Globulin 3.2 TSH 09/02/19 09/01/19 09/01/19 03:50 20:27 19:45 WBC 7.8 RBC 4.04 L Hgb 12.9 Hct 39.9 L MCV 98.8 H MCH 31.9 MCHC 32.3 RDW 14.2 Plt Count 254 MPV 10.3 Neut % (Auto) 61.2 Lymph % (Auto) 22.3 Edwards % (Auto) 8.4 Eos % (Auto) 7.0 Baso % (Auto) 0.6 Neut # (Auto) 4.8 Lymph # (Auto) 1.8 Edwards # (Auto) 0.7 Eos # (Auto) 0.6 Baso # (Auto) 0.1 Nucleated RBC % (a uto) 0 Nucleated RBCs # 0.0 PT INR D-Dimer Sodium Potassium Chloride Carbon Dioxide Anion Gap BUN Creatinine Glucose POC Glucose 118 Estimat Average Gl ucose Hemoglobin A1c Calculated Osmolal ity Lactate Calcium Phosphorus Magnesium Iron 53 L TIBC 242 % Saturation 21.9 Unsat Iron Binding 189 Total Bilirubin AST ALT Alkaline Phosphata se Troponin I 6 Hour Troponin I Hi Sens Del Troponin T Baselin e Troponin T 120 Min [place] Delta Troponin T NT-Pro-B Natriuret Pep Total Protein Albumin Globulin TSH 09/01/19 09/01/19 09/01/19 19:45 19:45 15:48 WBC RBC Hgb Hct MCV MCH MCHC RDW Plt Count MPV Neut % (Auto) Lymph % (Auto) Edwards % (Auto) Eos % (Auto) Baso % (Auto) Neut # (Auto) Lymph # (Auto) Edwards # (Auto) Eos # (Auto) Baso # (Auto) Nucleated RBC % (a uto) Nucleated RBCs # PT INR D-Dimer Sodium Potassium Chloride Carbon Dioxide Anion Gap BUN Creatinine Glucose POC Glucose Estimat Average Gl ucose Hemoglobin A1c Calculated Osmolal ity Lactate Calcium Phosphorus Magnesium Iron TIBC % Saturation Unsat Iron Binding Total Bilirubin AST ALT Alkaline Phosphata se Troponin I 6 Hour 28.65 H Troponin I Hi Sens Del 0.65 Troponin T Baselin e Troponin T 120 Min [place] 34.07 H Delta Troponin T 6.07 NT-Pro-B Natriuret Pep Total Protein Albumin Globulin TSH 1.24 09/01/19 09/01/19 09/01/19 14:13 13:30 13:30 WBC RBC Hgb Hct MCV MCH MCHC RDW Plt Count MPV Neut % (Auto) Lymph % (Auto) Edwards % (Auto) Eos % (Auto) Baso % (Auto) Neut # (Auto) Lymph # (Auto) Edwards # (Auto) Eos # (Auto) Baso # (Auto) Nucleated RBC % (a uto) Nucleated RBCs # PT INR D-Dimer 2.21 H Sodium Potassium Chloride Carbon Dioxide Anion Gap BUN Creatinine Glucose POC Glucose Estimat Average Gl ucose Hemoglobin A1c Calculated Osmolal ity Lactate 1.3 Calcium Phosphorus Magnesium Iron TIBC % Saturation Unsat Iron Binding Total Bilirubin AST ALT Alkaline Phosphata se Troponin I 6 Hour Troponin I Hi Sens Del Troponin T Baselin e 28 H Troponin T 120 Min [place] Delta Troponin T NT-Pro-B Natriuret Pep Total Protein Albumin Globulin TSH 09/01/19 09/01/19 09/01/19 13:30 13:30 13:30 WBC 8.3 RBC 3.86 L Hgb 12.1 Hct 38.6 L MCV 100.0 H MCH 31.3 MCHC 31.3 RDW 14.3 Plt Count 292 MPV 10.6 H Neut % (Auto) 61.4 Lymph % (Auto) 20.2 Edwards % (Auto) 9.3 Eos % (Auto) 7.7 Baso % (Auto) 0.7 Neut # (Auto) 5.1 Lymph # (Auto) 1.7 Edwards # (Auto) 0.8 Eos # (Auto) 0.6 Baso # (Auto) 0.1 Nucleated RBC % (a uto) 0 Nucleated RBCs # 0.0 PT 12.70 INR 0.93 D-Dimer Sodium 139 Potassium 4.5 Chloride 103 Carbon Dioxide 26 Anion Gap 14.5 BUN 12 Creatinine 0.8 Glucose 151 H POC Glucose Estimat Average Gl ucose Hemoglobin A1c Calculated Osmolal ity 287 Lactate Calcium 9.6 Phosphorus Magnesium 2.0 Iron TIBC % Saturation Unsat Iron Binding Total Bilirubin 0.3 AST 13 ALT 10 Alkaline Phosphata se 111 Troponin I 6 Hour Troponin I Hi Sens Del Troponin T Baselin e Troponin T 120 Min [place] Delta Troponin T NT-Pro-B Natriuret Pep 710 H Total Protein 6.7 Albumin 3.8 Globulin 2.9 TSH 1.54 Vitals: Last Vital Signs Temp 99.2 F 09/02/19 09:35 Pulse 79 09/02/19 09:35 Resp 18 09/02/19 09:35 BP 147/78 09/02/19 09:50 Pulse Ox 96 09/02/19 09:35 Discharge Plan Discharge Patient Disposition: Home, Self-Care Condition: Fair Prescriptions: Continued cyclobenzaprine 10 mg tablet 10 mg PO TID 30 Days Qty: 90 RF: 1 tramadol 50 mg tablet 50 mg PO TID PRN (Reason: pain) 30 Days Qty: 90 RF: 1 oxycodone 10 mg tablet 10 mg PO TID PRN (Reason: pain) 30 Days Qty: 90 RF: 0 celecoxib [Celebrex] 200 mg capsule 200 mg PO DAILY RF: 0 nitroglycerin [Nitrostat] 0.4 mg tablet, sublingual 0.4 mg SUBLINGUAL Q5M PRN (Reason: chests pains) RF: 0 losartan 50 mg tablet 50 mg PO BID RF: 0 aspirin 325 mg tablet 325 mg PO DAILY RF: 0 multivitamin Capsule 1 cap PO QAM RF: 0 amlodipine [Norvasc] 10 mg tablet 10 mg PO ONCE RF: 0 omega-3 fatty acids [Fish Oil Concentrate] 1,000 mg capsule 1,000 mg PO BID RF: 0 Novolin 70/30 U-100 Insulin 100 unit/mL (70-30) Suspension See Rx Instructions .ROUTE .COMPLEX RF: 0 Discharge Orders: Discharge Order (Routine); Ordered 09/02/19 Ordered By: Mika Galarza Referrals: Andrew Quintana MD [Physician] - 4-7 days Higinio Nelson DO [Primary Care Provider] - 4-7 days Discharge Diet: Cardiac Discharge Activity: Resume usual activity Activity Restrictions/Additional Instructions: If you have any dizziness, nausea, vomiting, shortness of breath please check your heart rate and come to the ER. Please avoid driving, going on heights as you are at high risk of fall. Cardiology office will be calling you on Thursday to set up an appointment for pacemaker implantation. Discharge Attestations Time Spent in Discharge Care*: greater than 30 min Specific Discharge Activities: Specific discharge activities: educating patient, discussing with pcp/other providers, discussing with patient case coordinator/social workers/dc planners, documenting/other paperwork and evaluating patient/reviewing data Status at Discharge: Cognitive status at discharge: cognitively intact , Behavioral status at discharge: cooperative , Functional status at discharge: independent ambulation Overall status at discharge: patient is back to baseline Quality Metrics Clinical Quality Measures During this hospital stay, did patient experience: None Coding Level of Care Code 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
--- NOTE | 2019-09-02 14:16 | PC.NURSE ---
Addendum entered by Radha Chester RN 09/02/19 16:26: Patient stated to son and she asked me if I was sure I was ready to go home and I told her I was ready to go home son then stated well every patient wants to go home Original Note: patient has been discharged home by both cardiology and hospitalist; family called to come get the patient; Patients son Jaime Larkin jr expresses concerns of patient not being stable enough to come home. This nurse expressed family concerns to the provider Dr luu; Familys contact information given to provider; provider reports he will call the family and speak with them. this nurse contacted by Dr hein; doctor reports no answer and a message was left. Upon taking patient to private vehicle to family; Son demands a copy of the signed discharge order. son states there will be legal action taken and i need the signed order for my city carrier assistant. This nurse explained the discharge paper work to the son; also that it does not have a doctors order on it. Son demands a copy of the order signed by the doctor contacted lending activities supervisor to speak with family.
== END 2019-09-02 14:00 | disposition home or self-care (01) ==
LOC: ER 15:05 → CSU 16:20 → ER 17:05 → CSU 21:30
PROVIDERS: Family Medicine; Admitting Provider Student in an Organized Health Care Education/Training Program; Family Provider Family Medicine; PCP Family Medicine; Visit Provider Student in an Organized Health Care Education/Training Program
DX: I44.30 Unspecified atrioventricular block (principal); E11.9 Type 2 diabetes mellitus without complications; I10 Essential (primary) hypertension; G89.29 Other chronic pain; I48.91 Unspecified atrial fibrillation; G47.30 Sleep apnea, unspecified; E66.01 Morbid (severe) obesity due to excess calories; Z68.37 Body mass index [BMI] 37.0-37.9, adult; M19.90 Unspecified osteoarthritis, unspecified site; Z82.49 Family history of ischemic heart disease and other diseases of the circulatory system; Z87.891 Personal history of nicotine dependence; M54.2 Cervicalgia; M54.16 Radiculopathy, lumbar region
CPT/HCPCS: 12345; 36415; 36416; 71045; 80053; 82962; 83036; 83540; 83550; 83605; 83735; 83880; 84100; 84443; 84484; 85025; 85378; 85610; 87641; 93005; 94640; 96372; 96374; 96376; 97161; 99283; 99285; G0378; J1650

== ENCOUNTER 2019-10-11 08:15 | Emergency (ER) | payer MEDICARE, OTHER, SELFPAY ==
[2019-10-11 08:18] VITALS: BP 124/77; PULSE 88; RESP 18; TEMP 37.3; O2SAT 99; BMI 36.3
--- NOTE | 2019-10-11 08:31 | ED_ITS ---
HPI - General Adult General: Chief complaint: General Medical Stated complaint: BLEEDING FROM SURGERY SITE Time Seen by Provider: 10/11/19 08:17 History of Present Illness: HPI narrative: 78-year-old male has bleeding on the left side of the belt line at the level of the ASIS. Began overnight. He previous had a pelvic fracture with open reduction internal fixation. He has been pinpoint area with active drainage of serosanguineous fluid. There is no arterial bleeding. In an attempt to examine patient we had him sit up which took the assist of 2 we made an attempt to have him stand but were unable to accomplish that with the assist of 3 Onset (ago): hour(s) Location: pelvis Severity: mild Relieving factors: none Exacerbating factors: none Associated symptoms: Reports no associated symptoms; Deny chest pain, cough, diaphoresis, decreased appetite, dyspnea, fevers/chills, headache(s), malaise, nausea, rash, palpitations, seizures, short of breath, syncope, vomiting or weakness Treatments prior to arrival: none Review of Systems Const: Denies: malaise or diaphoresis ENMT: Denies: throat pain, ear or mastoid pain, nasal discharge or nasal congestion Card: Denies: chest pain, palpitations or syncope Resp: Denies: dyspnea GI: Denies: nausea or vomiting : Denies: flank pain, dysuria, urinary frequency or urinary urgency Skin/Breast: Denies: rash Neuro: Denies: headache(s) [facility] ED PFSH: Medical History Aftercare following bilateral hip joint replacement surgery Atrial fibrillation AV block Chronic nonmalignant pain DDD (degenerative disc disease), lumbar Diabetes mellitus Facet syndrome, lumbar Hypertension Lumbar radicular pain Morbid obesity Muscle spasm of back Neck pain Osteoarthritis Other specified diseases of gallbladder Pain in left shoulder Psoriatic arthritis Sleep apnea Type 2 diabetes mellitus Surgical History S/P cholecystectomy Status post total hip replacement, bilateral Family History Father Hypertension Other CAD (coronary artery disease) Social History Smoking and tobacco status: former smoker Alcohol intake: never Marital status: Physical Exam Const: COMMON NORMALS: no acute distress ORIENTATION/CONSCIOUSNESS: Yes awake, Yes oriented to person, Yes oriented to place and Yes oriented to time HENMT: COMMON NORMALS: normocephalic and atraumatic HEAD & SCALP: normocephalic and atraumatic Eye: COMMON NORMALS: Equal, round and reactive pupils present, EOMs intact bilaterally, conjunctivae normal and no scleral icterus CONJUNCTIVA: Yes conjunctivae normal PUPIL: Yes Equal, round and reactive pupils present Neck/C-Spine: COMMON NORMALS: full ROM, no lymphadenopathy, supple and no JVD Lymph: LYMPHATIC: no lymphadenopathy noted and no lymphedema noted Resp: COMMON NORMALS: normal respiratory effort, No retractions, No use of accessory muscles and clear to auscultation bilaterally AUSCULTATION: clear to auscultation bilaterally Cardio: COMMON NORMALS: no JVD, regular rate, regular rhythm and No murmurs present (Cardio) RATE: regular rate RHYTHM: regular rhythm GI: COMMON NORMALS: Soft to palpation and No hepatosplenomegaly present AUSCULTATION: Yes normoactive bowel sounds PALPATION: Yes Soft to palpation, No Tenderness to palpation present (GI), No Guarding due to palpation present (GI) and Yes No hepatosplenomegaly present Back/Pelvis: OTHER: Punctate area of bleeding right anterior superior iliac spine under the pannus. Controlled with direct pressure but resumes. Serosanguineous drainage no signs of infection in the area no purulent drainage. No fluctuance noted. Bulky bandage and direct pressure applied. Extremity: COMMON NORMALS: normal to inspection, capillary refill normal, no clubbing, cyanosis or edema, no calf tenderness and no pedal edema Neuro: SENSORIUM/ORIENTATION: Yes oriented to person, Yes oriented to place and Yes oriented to time Course Vital Signs: Vital signs: Vital Signs Temperature 99.6 F 10/11/19 11:08 Pulse Rate 79 10/11/19 11:08 Respiratory Rate 18 10/11/19 11:26 Blood Pressure 123/73 10/11/19 11:08 Pulse Oximetry 97 10/11/19 11:08 MDM - General Adult MDM Narrative: Medical decision making narrative: Called and discussed Dr. Stein is on-call for Dr. Davies who originally placed these fixators. Described the findings to him they asked that he be transferred to [facility] in [place]. We do not have anyone in orthopedic staff who manages these sorts of problems so he is transferred for definitive care for this particular problem additionally continuity of care since they placed the originals. They will evaluate him in the ER there discussed with the patient expressed understanding Lab Data: Labs: Lab Results 10/11/19 10/11/19 10/11/19 Range/Units 08:45 08:45 08:45 WBC 18.1 H (4.0-10.0) 10^3/ uL RBC 4.28 (4.1-5.3) 10^6/u L Hgb 13.8 (11.7-16.6) g/dL Hct 42.4 (42.0-52.0) % MCV 99.1 H (80-94) fL MCH 32.2 (28.0-34.0) pg MCHC 32.5 (30.0-36.0) g/dL RDW 12.9 (12.1-15.1) % Plt Count 417 H (130-400) 10^3/c mm MPV 9.4 (7.4-10.4) fL Neut % (Auto) 79.4 % Lymph % (Auto) 8.9 % Green % (Auto) 5.1 % Eos % (Auto) 1.2 % Baso % (Auto) 0.5 % Neut # (Auto) 14.34 H (1.8-7.7) 10^3/u L Lymph # (Auto) 1.6 (0.8-4.8) 10^3/u L Green # (Auto) 0.9 (0.2-0.9) 10^3/u L Eos # (Auto) 0.2 (0.0-0.8) 10^3/u L Baso # (Auto) 0.1 (0.0-0.1) 10^3/u L Nucleated RBC % (a uto) 0 % Nucleated RBCs # 0.0 /100WBC PT 13.10 (12.1-14.9) SECO NDS INR 0.97 (0.8-1.2) APTT 28.4 (23.9-36.7) SECO NDS Sodium 139 (136-145) mmol/L Potassium 3.8 (3.5-5.1) mmol/L Chloride 98 (98-107) mmol/L Carbon Dioxide 27 (22-29) mmol/L Anion Gap 17.8 (5-19) BUN 17 (8-23) mg/dL Creatinine 1.1 (0.7-1.2) mg/dL GFR Calculation Not Reportable Glucose 162 H (65-115) mg/dL Calculated Osmolal ity 288 (285-295) mOsm/k g Calcium 9.4 (8.5-10.5) mg/dL Total Bilirubin 0.7 (0.15-1.2) mg/dL AST 20 (0-40) U/L ALT 18 (0-41) U/L Alkaline Phosphata se 138 H (40-130) IU/L Total Protein 8.0 (6.6-8.7) g/dL Albumin 3.6 (3.5-5.2) g/dL Globulin 4.4 (1.3-4.6) g/dL Discharge Plan Discharge Patient Disposition: Transfer to ED Clinical Impression: Hematoma, Pressure ulcer, Pelvic fracture Prescriptions: No Action cyclobenzaprine 10 mg tablet 10 mg PO TID 30 Days Qty: 90 RF: 1 tramadol 50 mg tablet 50 mg PO TID PRN (Reason: pain) 30 Days Qty: 90 RF: 1 oxycodone 10 mg tablet 10 mg PO TID PRN (Reason: pain) 30 Days Qty: 90 RF: 0 nitroglycerin [Nitrostat] 0.4 mg tablet, sublingual 0.4 mg SUBLINGUAL Q5M PRN (Reason: chests pains) RF: 0 losartan 50 mg tablet 50 mg PO BID RF: 0 aspirin 325 mg tablet 325 mg PO DAILY RF: 0 multivitamin Capsule 1 cap PO QAM RF: 0 amlodipine [Norvasc] 10 mg tablet 10 mg PO DAILY RF: 0 Novolin 70/30 U-100 Insulin 100 unit/mL (70-30) Suspension See Rx Instructions .ROUTE .COMPLEX RF: 0 celecoxib 200 mg capsule 200 mg PO DAILY RF: 0 chlorthalidone 25 mg tablet 25 mg PO DAILY RF: 0 Vitamin C 1 tab PO DAILY RF: 0 Referrals: Higinio Nelson DO [Primary Care Provider] - Interventions: ED Discharge Assessment Last Done: 10/11/19 11:08 ED Charges Last Done: 10/11/19 11:08 Discharge Date/Time: 10/11/19 12:31 Coding Level of Care Code ED Concaver for Chg Fwd Exam Comprehensive
--- NOTE | 2019-10-11 08:51 | US_ITS ---
WS: [id number] INDICATION: Ultrasound soft tissue TECHNIQUE: Ultrasound soft tissue in right hip. FINDINGS: Echogenic complex hematoma seen around the hardware at the anterosuperior iliac spine. Anam padma measures 3.8 x 5.4 x 4.6 cm. No evidence of drainable abscess or fluid collection. US/US soft tissue/extremity [id number] IMPRESSION: Echogenic hematoma about the hardware anterior superior iliac spine . No drainable fluid collection.
--- NOTE | 2019-10-11 08:51 | XRR_ITS ---
PROCEDURE INFORMATION: Exam: XR Pelvis Exam date and time: 10/11/2019 9:21 AM Age: 78 years old Clinical indication: Condition or disease; Other: Previous pelvic fracture, ; prior surgery; Additional info: Previous pelvic fracture, bleeding TECHNIQUE: Imaging protocol: XR pelvis. Views: 1 or 2 view. COMPARISON: No relevant prior studies available. FINDINGS: Bones/joints: Prior bilateral hip arthroplasties. Two long screws bridging the sacroiliac joints and body of the sacrum. Suspect an external fixator with screws in the iliac bone bilaterally. The hardware appears intact. Evidence of prior pubic rami fractures bilaterally. Multilevel disc degeneration and facet arthropathy in the lower lumbar spine. Soft tissues: No acute soft tissue abnormality. XR/XR pelvis min 3V [id number] IMPRESSION: Posttraumatic, postsurgical, and degenerative changes.
[2019-10-11 09:01] LABS: Basophils # 0.1 10^3/uL (0.0-0.1); Basophils % 0.5 %; Eosinophils # 0.2 10^3/uL (0.0-0.8); Eosinophils % 1.2 %; Hematocrit 42.4 % (42.0-52.0); Hemoglobin 13.8 g/dL (11.7-16.6); Lymphocytes # 1.6 10^3/uL (0.8-4.8); Lymphocytes % 8.9 %; Mean Corpuscular HGB Conc 32.5 g/dL (30.0-36.0); Mean Corpuscular Hemoglobin 32.2 pg (28.0-34.0); Mean Corpuscular Volume 99.1 fL (80-94); Mean Platelet Volume 9.4 fL (7.4-10.4); Monocytes # 0.9 10^3/uL (0.2-0.9); Monocytes % 5.1 %; Neutrophils # 14.34 10^3/uL (1.8-7.7); Neutrophils % 79.4 %; Nucleated Red Blood Cells % 0 %; Platelet Count 417 10^3/cmm (130-400); Red Blood Count 4.28 10^6/uL (4.1-5.3); Red Cell Distribution Width 12.9 % (12.1-15.1); White Blood Count 18.1 10^3/uL (4.0-10.0)
[2019-10-11 09:13] LABS: INR 0.97 (0.8-1.2)
[2019-10-11 09:14] LABS: Partial Thromboplastin Time 28.4 SECONDS (23.9-36.7)
[2019-10-11 09:20] LABS: Alanine Aminotransferase 18 U/L (0-41); Albumin Level 3.6 g/dL (3.5-5.2); Alkaline Phosphatase 138 IU/L (40-130); Anion Gap 17.8 (5-19); Aspartate Amino Transferase 20 U/L (0-40); Blood Urea Nitrogen 17 mg/dL (8-23); Calcium 9.4 mg/dL (8.5-10.5); Carbon Dioxide 27 mmol/L (22-29); Chloride 98 mmol/L (98-107); Globulin 4.4 g/dL (1.3-4.6); Glucose 162 mg/dL (65-115); Osmolality Calculated 288 mOsm/kg (285-295); Potassium 3.8 mmol/L (3.5-5.1); Sodium 139 mmol/L (136-145); Total Bilirubin 0.7 mg/dL (0.15-1.2)
--- NOTE | 2019-10-11 10:17 | PC.NURSE ---
PATIENT UP ON BEDSIDE COMMODE WITH ASSIST
[2019-10-11] MEDS: vancomycin 1,000 MG in sodium chloride 0.9% 250 ML 250 MG IV (10:46)
[2019-10-11 11:08] VITALS: BP 123/73; PULSE 79; RESP 18; TEMP 37.6; O2SAT 97
[2019-10-11 11:26] VITALS: RESP 18
[2019-10-11] MEDS: morphine 4 mg/mL SDV 1 mL 2 MG IVP (11:26)
== END 2019-10-11 12:31 ==
LOC: ER 08:40
PROVIDERS: Emergency Provider Family Medicine; PCP Family Medicine
DX: S32.9XXA Fracture of unspecified parts of lumbosacral spine and pelvis, initial encounter for closed fracture (principal); L89.90 Pressure ulcer of unspecified site, unspecified stage; Z79.82 Long term (current) use of aspirin; Z79.4 Long term (current) use of insulin; I48.91 Unspecified atrial fibrillation; E11.9 Type 2 diabetes mellitus without complications; I10 Essential (primary) hypertension; Z87.891 Personal history of nicotine dependence; Z96.643 Presence of artificial hip joint, bilateral; X58.XXXA Exposure to other specified factors, initial encounter
CPT/HCPCS: 12345; 72190; 76882; 80053; 85025; 85610; 85730; 87040; 87077; 87186; 87205; 96365; 96375; 99282; 99285; J2270; J3370; J7050

== ENCOUNTER → 2019-12-28 13:59 | Outpatient (BNVA) | payer MEDICARE, OTHER, SELFPAY | PROVIDERS: PCP Family Medicine; Visit Provider Anesthesiology | DX: M47.816 Spondylosis without myelopathy or radiculopathy, lumbar region (principal); M54.16 Radiculopathy, lumbar region; M51.36 Other intervertebral disc degeneration, lumbar region; M54.2 Cervicalgia; Z79.891 Long term (current) use of opiate analgesic | CPT/HCPCS: 99214 ==

== ENCOUNTER → 2020-02-23 09:44 | Outpatient (BNVA) | payer MEDICARE, OTHER, SELFPAY | PROVIDERS: PCP Family Medicine; Visit Provider Anesthesiology | DX: M47.816 Spondylosis without myelopathy or radiculopathy, lumbar region (principal); M51.36 Other intervertebral disc degeneration, lumbar region; M54.16 Radiculopathy, lumbar region; M54.2 Cervicalgia; M25.512 Pain in left shoulder; Z79.891 Long term (current) use of opiate analgesic | CPT/HCPCS: 99214 ==

== ENCOUNTER → 2020-04-20 12:12 | Outpatient (BNVA) | payer MEDICARE, OTHER, SELFPAY | PROVIDERS: PCP Family Medicine; Visit Provider Nurse Practitioner | DX: M54.2 Cervicalgia (principal); M25.512 Pain in left shoulder; M51.36 Other intervertebral disc degeneration, lumbar region; M47.816 Spondylosis without myelopathy or radiculopathy, lumbar region; M54.16 Radiculopathy, lumbar region; M19.90 Unspecified osteoarthritis, unspecified site; Z79.891 Long term (current) use of opiate analgesic | CPT/HCPCS: 99213; 99214 ==

== ENCOUNTER → 2020-06-27 14:01 | Outpatient (BNVA) | payer MEDICARE, OTHER, SELFPAY | PROVIDERS: PCP Family Medicine; Visit Provider Anesthesiology | DX: G89.29 Other chronic pain (principal); M51.36 Other intervertebral disc degeneration, lumbar region; M47.816 Spondylosis without myelopathy or radiculopathy, lumbar region; M54.16 Radiculopathy, lumbar region; M54.2 Cervicalgia; M25.512 Pain in left shoulder; M19.90 Unspecified osteoarthritis, unspecified site; Z79.891 Long term (current) use of opiate analgesic | CPT/HCPCS: 99214 ==

== ENCOUNTER → 2020-08-10 11:16 | Outpatient (BNVA) | payer MEDICARE, OTHER, SELFPAY | PROVIDERS: PCP Family Medicine; Visit Provider Nurse Practitioner | DX: M51.36 Other intervertebral disc degeneration, lumbar region (principal); M47.816 Spondylosis without myelopathy or radiculopathy, lumbar region; M54.16 Radiculopathy, lumbar region; M54.2 Cervicalgia; M25.512 Pain in left shoulder; M19.90 Unspecified osteoarthritis, unspecified site; Z79.891 Long term (current) use of opiate analgesic | CPT/HCPCS: 99213 ==

== ENCOUNTER → 2020-09-07 11:35 | Outpatient (BNVA) | payer MEDICARE, OTHER, SELFPAY | PROVIDERS: PCP Family Medicine; Visit Provider Anesthesiology | DX: G89.29 Other chronic pain (principal); M51.36 Other intervertebral disc degeneration, lumbar region; M54.16 Radiculopathy, lumbar region; M47.816 Spondylosis without myelopathy or radiculopathy, lumbar region; M25.511 Pain in right shoulder; Z79.891 Long term (current) use of opiate analgesic; Z87.891 Personal history of nicotine dependence | CPT/HCPCS: 99214 ==

== ENCOUNTER → 2020-11-08 13:03 | Outpatient (BNVA) | payer MEDICARE, OTHER, SELFPAY | PROVIDERS: PCP Family Medicine; Visit Provider Anesthesiology | DX: G89.29 Other chronic pain (principal); M51.36 Other intervertebral disc degeneration, lumbar region; M54.16 Radiculopathy, lumbar region; M47.816 Spondylosis without myelopathy or radiculopathy, lumbar region; M54.2 Cervicalgia; M25.512 Pain in left shoulder; M25.511 Pain in right shoulder; M19.90 Unspecified osteoarthritis, unspecified site; Z79.891 Long term (current) use of opiate analgesic | CPT/HCPCS: 99214 ==

== ENCOUNTER → 2021-01-18 12:32 | Outpatient (BNVA) | payer MEDICARE, OTHER, SELFPAY | PROVIDERS: PCP Family Medicine; Visit Provider Anesthesiology | DX: G89.29 Other chronic pain (principal); M51.36 Other intervertebral disc degeneration, lumbar region; M47.816 Spondylosis without myelopathy or radiculopathy, lumbar region; M54.16 Radiculopathy, lumbar region; M54.2 Cervicalgia; M25.512 Pain in left shoulder; M25.511 Pain in right shoulder; M19.90 Unspecified osteoarthritis, unspecified site; Z79.891 Long term (current) use of opiate analgesic; Z79.899 Other long term (current) drug therapy | CPT/HCPCS: 99214 ==

== ENCOUNTER → 2021-03-19 14:00 | Outpatient (BNVA) | payer MEDICARE, OTHER, SELFPAY | PROVIDERS: PCP Family Medicine; Visit Provider Anesthesiology | DX: G89.29 Other chronic pain (principal); M51.36 Other intervertebral disc degeneration, lumbar region; M54.16 Radiculopathy, lumbar region; M47.816 Spondylosis without myelopathy or radiculopathy, lumbar region; M54.2 Cervicalgia; M19.90 Unspecified osteoarthritis, unspecified site; Z79.891 Long term (current) use of opiate analgesic | CPT/HCPCS: 99214 ==

== ENCOUNTER → 2021-06-26 14:30 | Outpatient (BNVA) | payer MEDICARE, OTHER, SELFPAY | PROVIDERS: PCP Family Medicine; Visit Provider Internal Medicine Cardiovascular Disease | DX: I48.0 Paroxysmal atrial fibrillation (principal); I10 Essential (primary) hypertension; G47.33 Obstructive sleep apnea (adult) (pediatric); E66.9 Obesity, unspecified; Z68.41 Body mass index [BMI] 40.0-44.9, adult; I44.30 Unspecified atrioventricular block; E11.65 Type 2 diabetes mellitus with hyperglycemia; Z87.891 Personal history of nicotine dependence; Z79.4 Long term (current) use of insulin | CPT/HCPCS: 99213; 99214 ==

== ENCOUNTER 2021-09-13 06:14 | Outpatient (CLI) | payer MEDICARE, OTHER, SELFPAY ==
--- NOTE | 2021-09-13 06:50 | CT_ITS ---
WS: [id number] CT HEAD NONCONTRAST HISTORY: CONFUSION TECHNIQUE: Contiguous axial imaging performed through the brain in 2.5 mm imaging. Bone and soft tiss ue windows. Sagittal and coronal reformats reviewed. All CT scans at [facility] use at least one of these dose optimization techniques: automated exposure control; mA and/or kV adjustment per pa tient size (includes targeted exams where dose is matched to clinical indication); or iterative recon struction. DLP: 583.78 mGy.cm COMPARISON: 03/12/2018 No acute intracranial hemorrhage, midline shift or mass effect. Mild atrophy and small vessel ischemic disease. No sulcal effacement. Prior lacunar infarcts in the b amita ganglia bilaterally. Mild progression of small vessel disease since the prior study. Ventricles: Ventricles are mildly prominent on the basis of atrophy. No significant progression sinc e the prior exam. Paranasal sinuses: As visualized are clear. Mastoid air cells: Well pneumatized. Calvarium and scalp: Skull is intact with no soft tissue edema or swelling. CT/CT head wo con* [id number] IMPRESSION: 1. No acute intracranial hemorrhage or edema. 2. Atrophy and small vessel ischemic disease with small bilateral basal gangli a lacunar infarcts. Minimal progression since the prior study.
--- NOTE | 2021-09-13 06:51 | CT_ITS ---
WS: [id number] CT CERVICAL SPINE, noncontrast HISTORY: CERVICAL WITHOUT RADICULOPATHY TECHNIQUE: Contiguous 2.0 mm axial imaging performed through the entire cervical spine. Sagittal and coronal reformats also performed. All CT scans at [facility] use at least one of these dose o ptimization techniques: automated exposure control; mA and/or kV adjustment per patient size (include s targeted exams where dose is matched to clinical indication); or iterative reconstruction. DLP: 434.67 mGy.cm COMPARISON: 03/18/2018 Straightening of the normal cervical lordosis. Slight reversal centered in the lower cervical spine. Disc spaces are mildly narrowed and desiccated. Moderate osteophytosis within the cervical spine. No fractures. C2-C3: Osteophytic ridging with central disc protrusion. Disc extends into the proximal foramen causi ng mild LEFT foraminal stenosis. C3-C4: Diffuse osteophytic ridging with severe bilateral facet arthritis. Osteophytic encroachment up on the ventral canal. Degenerative subchondral cystic changes in the LEFT facet joint. Moderate cent ral and bilateral foraminal stenosis. C4-C5: Osteophytes and facet disease resulting in moderate central with severe foraminal stenosis. C5-C6: Diffuse osteophytic ridging and large osteophytes encroach into the thecal sac and foramina. S evere central and RIGHT foraminal stenosis and moderate LEFT foraminal stenosis. C6-C7: Osteophytic ridging encroaching on the RIGHT lateral thecal sac. Central and bilateral foramin al stenosis is significant. C7-T1: Osteophytic ridging with severe RIGHT foraminal stenosis and moderate LEFT. Stenosis continues into the RIGHT foramina at T1-2. Calcification within the carotid arteries. CT/CT cervical spin wo con* [id number] IMPRESSION: 1. No acute fracture. 2. Severe multilevel areas of central and foraminal stenosis and facet joint a rthritis. There is been a significant progression of degenerative disc disease and stenoses since 2019. Most significant stenoses from C4-5 through C7-T1 as a isaias.
== END 2021-09-13 06:15 | disposition home or self-care (01) ==
PROVIDERS: PCP Family Medicine; Visit Provider Family Medicine
DX: R41.0 Disorientation, unspecified (principal); M54.12 Radiculopathy, cervical region; R60.9 Edema, unspecified; M48.02 Spinal stenosis, cervical region; M48.03 Spinal stenosis, cervicothoracic region
CPT/HCPCS: 70450; 72125

== ENCOUNTER → 2021-12-26 14:03 | Outpatient (BNVA) | payer MEDICARE, OTHER, SELFPAY | PROVIDERS: PCP Family Medicine; Visit Provider Internal Medicine Cardiovascular Disease | DX: I48.0 Paroxysmal atrial fibrillation (principal); I10 Essential (primary) hypertension; E11.65 Type 2 diabetes mellitus with hyperglycemia; Z79.4 Long term (current) use of insulin; E78.5 Hyperlipidemia, unspecified; G47.33 Obstructive sleep apnea (adult) (pediatric); Z87.891 Personal history of nicotine dependence | CPT/HCPCS: 99214 ==

== ENCOUNTER → 2022-01-31 09:09 | Outpatient (BNVA) | payer MEDICARE, OTHER, SELFPAY | PROVIDERS: PCP Family Medicine; Visit Provider Nurse Practitioner Family | DX: I96 Gangrene, not elsewhere classified (principal); E11.621 Type 2 diabetes mellitus with foot ulcer; L97.512 Non-pressure chronic ulcer of other part of right foot with fat layer exposed | CPT/HCPCS: 11042; 99213; A6021 ==

== ENCOUNTER → 2022-02-07 10:31 | Outpatient (BNVA) | payer MEDICARE, OTHER, SELFPAY | PROVIDERS: PCP Family Medicine; Visit Provider Nurse Practitioner Family | DX: I96 Gangrene, not elsewhere classified (principal); E11.621 Type 2 diabetes mellitus with foot ulcer; L89.892 Pressure ulcer of other site, stage 2 | CPT/HCPCS: 11042; A6021 ==

== ENCOUNTER → 2022-02-14 10:38 | Outpatient (BNVA) | payer MEDICARE, OTHER, SELFPAY | PROVIDERS: PCP Family Medicine; Visit Provider Surgery | DX: I96 Gangrene, not elsewhere classified (principal); E11.621 Type 2 diabetes mellitus with foot ulcer; L89.892 Pressure ulcer of other site, stage 2 | CPT/HCPCS: 11042; A6021 ==

== ENCOUNTER → 2022-02-28 13:14 | Outpatient (BNVA) | payer MEDICARE, OTHER, SELFPAY | PROVIDERS: PCP Family Medicine; Visit Provider Thoracic Surgery (Cardiothoracic Vascular Surgery) | DX: I96 Gangrene, not elsewhere classified (principal); E11.621 Type 2 diabetes mellitus with foot ulcer; L97.512 Non-pressure chronic ulcer of other part of right foot with fat layer exposed | CPT/HCPCS: 11042; A6021 ==

== ENCOUNTER → 2022-03-07 15:52 | Outpatient (BNVA) | payer MEDICARE, OTHER, SELFPAY | PROVIDERS: PCP Family Medicine; Visit Provider Thoracic Surgery (Cardiothoracic Vascular Surgery) | DX: I96 Gangrene, not elsewhere classified (principal); E11.621 Type 2 diabetes mellitus with foot ulcer; L89.892 Pressure ulcer of other site, stage 2 | CPT/HCPCS: 11042; A6021 ==

== ENCOUNTER → 2022-03-14 16:18 | Outpatient (BNVA) | payer MEDICARE, OTHER, SELFPAY | PROVIDERS: PCP Family Medicine; Visit Provider Thoracic Surgery (Cardiothoracic Vascular Surgery) | DX: I96 Gangrene, not elsewhere classified (principal); E11.621 Type 2 diabetes mellitus with foot ulcer; L97.512 Non-pressure chronic ulcer of other part of right foot with fat layer exposed | CPT/HCPCS: 11042; A6021 ==

== ENCOUNTER 2022-03-28 16:19 | Outpatient (CLI) | payer MEDICARE, OTHER, SELFPAY ==
--- NOTE | 2022-03-28 16:39 | XRR_ITS ---
PROCEDURE INFORMATION: Exam: XR Right Foot Exam date and time: 03/28/2022 4:46 PM Age: 81 years old Clinical indication: Condition or disease; Other: Infection on big toe; Additional info: E11.621 - type 2 diabetes mellitus with foot ulcer TECHNIQUE: Imaging protocol: Radiologic exam of the Right foot. Views: 3 or more views. COMPARISON: US soft tissue/extremity [id number] 10/11/2019 9:28 AM FINDINGS: Bones/joints: Decreased bone density in the phalanges of the 4th toe. Small hypodensity in the head of the 4th distal metatarsal. 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 The other bones are intact. Degenerative changes of the intertarsal joints. Soft tissues: Severe soft tissue swelling of the dorsal foot, toes, ankle, and lower leg. Vasculature: Arterial calcifications. XR/XR foot RT min 3V* [id number] IMPRESSION: 1. Decreased bone density in the phalanges of the 4th toe and in the head of the distal 4th metatarsal. Osteomyelitis cannot be excluded. Follow-up with MRI should be considered. 2. 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
== END 2022-03-28 16:20 | disposition home or self-care (01) ==
LOC: RAD 16:28
PROVIDERS: PCP Family Medicine; Visit Provider Thoracic Surgery (Cardiothoracic Vascular Surgery)
DX: I96 Gangrene, not elsewhere classified (principal); E11.621 Type 2 diabetes mellitus with foot ulcer; L89.892 Pressure ulcer of other site, stage 2
CPT/HCPCS: 11042; 73630; 87070; 87077; 87176; 87186; 87205

== ENCOUNTER → 2022-04-04 13:02 | Outpatient (BNVA) | payer MEDICARE, OTHER, SELFPAY | PROVIDERS: PCP Family Medicine; Visit Provider Thoracic Surgery (Cardiothoracic Vascular Surgery) | DX: I96 Gangrene, not elsewhere classified (principal); E11.621 Type 2 diabetes mellitus with foot ulcer; L97.512 Non-pressure chronic ulcer of other part of right foot with fat layer exposed | CPT/HCPCS: 11042 ==

== ENCOUNTER → 2022-04-11 13:13 | Outpatient (BNVA) | payer MEDICARE, OTHER, SELFPAY | PROVIDERS: PCP Family Medicine; Visit Provider Thoracic Surgery (Cardiothoracic Vascular Surgery) | DX: I96 Gangrene, not elsewhere classified (principal); E11.621 Type 2 diabetes mellitus with foot ulcer; L89.892 Pressure ulcer of other site, stage 2 | CPT/HCPCS: 11042 ==

== ENCOUNTER 2022-04-16 14:40 | Outpatient (CLI) | payer MEDICARE, OTHER, SELFPAY ==
--- NOTE | 2022-04-16 15:15 | MR_ITS ---
WS: [id number] EXAMINATION: MR foot RT wo/w con [id number] ORDER DATE: 04/16/2022 3:29 PM COMPARISON: None. HISTORY: E11.621 - Type 2 diabetes mellitus with foot ulcer CONTRAST: None. TECHNIQUE: Sagittal T1, sagittal STIR, coronal PD, coronal T2, axial T1, axial T2, and axial PD imagi ng with fat saturation technique. Post gadolinium imaging includes axial T1, coronal T1, and sagittal T1 with fat saturation technique. FINDINGS: Diffuse soft tissue edema dorsal foot compatible with cellulitis. No drainable abscess or f luid collection. T1 fatty bone marrow signal is preserved in the 4th phalanges and 4th metatarsal. Normal bone marrow signal in the metatarsals. Degenerative arthritis at the 1st MTP. Edema and enhanc ement extends into the deep intertarsal soft tissues. No drainable fluid collections. MR/MR foot RT wo/w con [id number] IMPRESSION: 1. No evidence of osteomyelitis in the 4th phalanges or metatarsals. 2. Diffuse cellulitis with intertarsal soft tissue infection. 3. No drainable abscess or fluid collection.
[2022-04-16] MEDS: gadobenate dimeglumine 20 mL vial IV (16:53)
== END 2022-04-16 14:41 | disposition home or self-care (01) ==
LOC: RAD 14:41
PROVIDERS: PCP Family Medicine; Visit Provider Thoracic Surgery (Cardiothoracic Vascular Surgery)
DX: E11.621 Type 2 diabetes mellitus with foot ulcer (principal); L97.509 Non-pressure chronic ulcer of other part of unspecified foot with unspecified severity; L03.031 Cellulitis of right toe
CPT/HCPCS: 73720; A9577

== ENCOUNTER → 2022-04-18 13:37 | Outpatient (BNVA) | payer MEDICARE, OTHER, SELFPAY | PROVIDERS: PCP Family Medicine; Visit Provider Thoracic Surgery (Cardiothoracic Vascular Surgery) | DX: I96 Gangrene, not elsewhere classified (principal); E11.621 Type 2 diabetes mellitus with foot ulcer; L89.892 Pressure ulcer of other site, stage 2 | CPT/HCPCS: 11042; A6250 ==

== ENCOUNTER → 2022-04-25 14:36 | Outpatient (BNVA) | payer MEDICARE, OTHER, SELFPAY | PROVIDERS: PCP Family Medicine; Visit Provider Thoracic Surgery (Cardiothoracic Vascular Surgery) | DX: I96 Gangrene, not elsewhere classified (principal); E11.621 Type 2 diabetes mellitus with foot ulcer; L97.512 Non-pressure chronic ulcer of other part of right foot with fat layer exposed | CPT/HCPCS: 11042 ==

== ENCOUNTER → 2022-05-09 13:44 | Outpatient (BNVA) | payer MEDICARE, OTHER, SELFPAY | PROVIDERS: PCP Family Medicine; Visit Provider Nurse Practitioner Family | DX: I96 Gangrene, not elsewhere classified (principal); E11.621 Type 2 diabetes mellitus with foot ulcer; L97.512 Non-pressure chronic ulcer of other part of right foot with fat layer exposed | CPT/HCPCS: 97597 ==

== ENCOUNTER → 2022-05-16 13:44 | Outpatient (BNVA) | payer MEDICARE, OTHER, SELFPAY | PROVIDERS: PCP Family Medicine; Visit Provider Nurse Practitioner Family | DX: I96 Gangrene, not elsewhere classified (principal); E11.621 Type 2 diabetes mellitus with foot ulcer; L89.892 Pressure ulcer of other site, stage 2 | CPT/HCPCS: 97597 ==

== ENCOUNTER → 2022-05-23 15:56 | Outpatient (BNVA) | payer MEDICARE, OTHER, SELFPAY | PROVIDERS: PCP Family Medicine; Visit Provider Nurse Practitioner Family | DX: I96 Gangrene, not elsewhere classified (principal); E11.621 Type 2 diabetes mellitus with foot ulcer; L97.512 Non-pressure chronic ulcer of other part of right foot with fat layer exposed | CPT/HCPCS: 11042; A6250 ==

== ENCOUNTER → 2022-05-29 15:11 | Outpatient (BNVA) | payer MEDICARE, OTHER, SELFPAY | PROVIDERS: PCP Family Medicine; Visit Provider Nurse Practitioner Family | DX: I96 Gangrene, not elsewhere classified (principal); E11.621 Type 2 diabetes mellitus with foot ulcer; L89.892 Pressure ulcer of other site, stage 2 | CPT/HCPCS: 97597 ==

== ENCOUNTER → 2022-06-02 10:10 | Outpatient (BNVA) | payer MEDICARE, OTHER, SELFPAY | PROVIDERS: PCP Family Medicine; Visit Provider Internal Medicine Cardiovascular Disease | DX: R01.1 Cardiac murmur, unspecified (principal); I48.0 Paroxysmal atrial fibrillation; G47.33 Obstructive sleep apnea (adult) (pediatric); I10 Essential (primary) hypertension; E11.621 Type 2 diabetes mellitus with foot ulcer; L97.509 Non-pressure chronic ulcer of other part of unspecified foot with unspecified severity; E78.5 Hyperlipidemia, unspecified; E66.01 Morbid (severe) obesity due to excess calories; R60.9 Edema, unspecified; Z79.82 Long term (current) use of aspirin; R06.02 Shortness of breath; Z68.41 Body mass index [BMI] 40.0-44.9, adult; Z79.4 Long term (current) use of insulin; Z87.891 Personal history of nicotine dependence | CPT/HCPCS: 99214 ==

== ENCOUNTER → 2022-06-06 13:50 | Outpatient (BNVA) | payer MEDICARE, OTHER, SELFPAY | PROVIDERS: PCP Family Medicine; Visit Provider Thoracic Surgery (Cardiothoracic Vascular Surgery) | DX: E11.621 Type 2 diabetes mellitus with foot ulcer (principal); L89.892 Pressure ulcer of other site, stage 2 | CPT/HCPCS: 97597 ==

== ENCOUNTER → 2022-06-13 14:26 | Outpatient (BNVA) | payer MEDICARE, OTHER, SELFPAY | PROVIDERS: PCP Family Medicine; Visit Provider Thoracic Surgery (Cardiothoracic Vascular Surgery) | DX: E11.621 Type 2 diabetes mellitus with foot ulcer (principal); L89.892 Pressure ulcer of other site, stage 2 | CPT/HCPCS: 99212 ==

== ENCOUNTER → 2022-06-17 16:02 | Outpatient (BNVA) | payer MEDICARE, OTHER, SELFPAY | PROVIDERS: PCP Family Medicine; Visit Provider Family Medicine | DX: E11.9 Type 2 diabetes mellitus without complications (principal); R60.9 Edema, unspecified; I10 Essential (primary) hypertension | CPT/HCPCS: 80053; 80061; 83036; 83880 ==

== ENCOUNTER 2022-06-27 11:31 | Outpatient (CLI) | payer MEDICARE, OTHER, SELFPAY ==
--- NOTE | 2022-06-27 11:30 | USCV_ITS ---
Juanisana luisa Deepak Age: 81 Gender: M : 1940 Exam Date: 06/27/2022 12:05 Ordering Phys: Sabiha Mae MD ([email or web address]) Technologist: Keila Pitt [place] [facility] [place]: chest pain BP: / HR: 103 Rhythm: Sinus Technical Quality: Adequate MEASUREMENTS (Male / Female) Normal Values 2D ECHO LV Diastolic Diameter PLAX 4.4 cm 4.2 - 5.9 / 3.9 - 5.3 cm LV Systolic Diameter PLAX 2.5 cm IVS Diastolic Thickness 1.7 cm 0.6 - 1.0 / 0.6 - 0.9 cm IVS Systolic Thickness 2.2 cm LVPW Diastolic Thickness 1.1 cm 0.6 - 1.0 / 0.6 - 0.9 cm LVPW Systolic Thickness 2.0 cm LVOT Diameter 2.1 cm LV Ejection Fraction 2D Teich 74.7 % LV Ejection Fraction MOD 2C 57.7 % LV Ejection Fraction 2C AL 57.2 % LA Diameter 3.4 cm Aorta at Sinotubular Diameter 4.2 cm M-MODE MV E Point Septal Separation 1.2 cm DOPPLER AV Peak Velocity 322.7 cm/s LVOT Peak Velocity 88.0 cm/s AV Area Cont Eq vti 1.0 cm squared AV Area Cont Eq pk 0.9 cm squared MV Peak Velocity 173.0 cm/s MV Area PHT 5.0 cm squared Mitral E to A Ratio 0.7 MV E' Velocity 109.0 cm/s TR Peak Velocity 131.0 cm/s TR Peak Gradient 6.9 mmHg Right Atrial Pressure 3.0 mmHg Pulmonary Artery Systolic Pressu 9.9 mmHg PV Peak Velocity 101.0 cm/s RV Acceleration Time 0.1 s RV Ejection Time 0.3 s RV AcT/ET 0.3 FINDINGS Left Ventricle Normal left ventricular size and systolic function, EF 60 %. No regional wall motion abnormalities. (Echo contrast - Optison was used to delineate the endocardium and to estimate the LV ejection fraction) Right Ventricle The right ventricle is normal in size and function. Right Atrium The right atrium is normal in size. Left Atrium Possibly of normal size Mitral Valve Severe mitral annular calcification. Aortic Valve Severe low gradient aortic valve stenosis, mean gradient 18.6 mmHg, SMITH 0.99 cm squared. Tricuspid Valve Tricuspid valve not well visualized. Pulmonic Valve Pulmonic valve not well visualized. Pericardium Normal pericardium without effusion. Aorta Normal ascending aorta dimension. IVC Inferior vena cava not visualized. CONCLUSIONS Normal left ventricular size and systolic function, EF 60 %. No regional wall motion abnormalities. (Echo contrast - Optison was used to delineate the endocardium and to estimate the LV ejection fraction). Severe low gradient aortic valve stenosis, mean gradient 18.6 mmHg, SMITH 0.99 cm squared. Severe mitral annular calcification. There is no pericardial effusion. There are no intracardiac masses. Technically difficult study Dr Sabiha Mae MD [facility] (Electronically Signed) Final Date: 04 Jul 2022 00:58 S
[2022-06-27] MEDS: perflutren protein-a microsphr 0.22 mg/mL SDV 3 mL IV (13:25)
== END 2022-06-27 11:32 | disposition home or self-care (01) ==
LOC: RAD 11:40
PROVIDERS: PCP Family Medicine; Visit Provider Internal Medicine Cardiovascular Disease
DX: I35.8 Other nonrheumatic aortic valve disorders (principal); I34.81 Nonrheumatic mitral (valve) annulus calcification; I73.9 Peripheral vascular disease, unspecified
CPT/HCPCS: 93925; C8929; Q9956

== ENCOUNTER 2022-06-27 11:43 | Outpatient (CLI) | payer MEDICARE, OTHER, SELFPAY ==
--- NOTE | 2022-06-27 14:15 | USCV_ITS ---
Trae Deepak Age: 81 Gender: M : 1940 Exam Date: 06/27/2022 12:39 Ordering Phys: Sabiha Mae MD ([email or web address]) Technologist: Monico Salmeron [place] [facility] [facility] [place]ication: pad Risk Factors: Previous Vascular Surgery: RIGHT LEFT BP: 130.0 / 78.00 BP: 129.0/ 72.00 0 0 Waveform Velocity (cm/s) Velocity (cm/s) Waveform Triphasic 130.1 Iliac Prox 102.5 Triphasic Triphasic 155.1 Iliac Mid 85.4 Triphasic Triphasic 117.0 Iliac Distal 86.3 Triphasic Triphasic 118.3 COSTUME CUTTER 89.7 Triphasic Triphasic 126.2 SFA Prox 89.7 Triphasic Triphasic 106.5 SFA Mid 92.3 Triphasic Triphasic 114.4 SFA Dist 88.9 Triphasic Triphasic 132.8 POP 92.3 Triphasic Monophasic 52.0 ALL TERRAIN VEHICLE TECHNICIAN 55.5 Monophasic Monophasic 53.0 DPA 45.3 Monophasic 0.6 SAMANTA 1.0 FINDINGS Mild diffuse plaque in the iliac and femoral artery on the right side. Triphasic waveforms throughout the vessels except the infrapopliteal arteries, which are found to have monophasic and continuous flow velocities Doppler waveforms Monophasic waveforms in the left infrapopliteal vessels Except for the infrapopliteal, all the other vessels were found to have triphasic waveforms CONCLUSIONS 1. Normal resting SAMANTA of 1.0 on the left side. 2. Abnormal resting SAMANTA of 0.6 on the right side, suggestive of moderate peripheral artery disease. 3. Possible infrapopliteal disease bilaterally Dr Sabiha Mae MD [facility] (Electronically Signed) Final Date: 04 Jul 2022 00:48 S
== END 2022-06-27 11:44 | disposition home or self-care (01) ==
LOC: RAD 11:44
PROVIDERS: PCP Family Medicine; Visit Provider Internal Medicine Cardiovascular Disease
DX: I73.9 Peripheral vascular disease, unspecified (principal)
CPT/HCPCS: 93925

== ENCOUNTER → 2022-07-08 15:14 | Outpatient (BNVA) | payer MEDICARE, OTHER, SELFPAY | PROVIDERS: PCP Family Medicine; Visit Provider Internal Medicine Cardiovascular Disease | DX: I35.0 Nonrheumatic aortic (valve) stenosis (principal); I77.9 Disorder of arteries and arterioles, unspecified; R60.9 Edema, unspecified; G47.33 Obstructive sleep apnea (adult) (pediatric); E11.42 Type 2 diabetes mellitus with diabetic polyneuropathy; I48.0 Paroxysmal atrial fibrillation; Z87.891 Personal history of nicotine dependence; Z79.4 Long term (current) use of insulin | CPT/HCPCS: 99214 ==

== ENCOUNTER → 2022-12-22 13:52 | Outpatient (BNVA) | payer MEDICARE, OTHER, SELFPAY | PROVIDERS: PCP Family Medicine; Visit Provider Nurse Practitioner Family | DX: I35.0 Nonrheumatic aortic (valve) stenosis (principal); I48.0 Paroxysmal atrial fibrillation; I10 Essential (primary) hypertension; R60.9 Edema, unspecified; Z87.891 Personal history of nicotine dependence | CPT/HCPCS: 99214 ==

== ENCOUNTER 2023-01-15 12:35 | Outpatient (CLI) | payer MEDICARE, OTHER, SELFPAY ==
--- NOTE | 2023-01-15 13:00 | USCV_ITS ---
Deepak Larkin Age: 82 Gender: M : 1940 Exam Date: 01/15/2023 12:53 Ordering Phys: Mayte Zavaleta Technologist: Exam Location: [facility] [place] Indication: as BP: 130 / 80 HR: 71 Rhythm: Sinus Technical Quality: Very technically difficult study MEASUREMENTS (Male / Female) Normal Values 2D ECHO LV Diastolic Diameter PLAX 3.8 cm 4.2 - 5.9 / 3.9 - 5.3 cm LV Systolic Diameter PLAX 2.7 cm IVS Diastolic Thickness 1.6 cm 0.6 - 1.0 / 0.6 - 0.9 cm IVS Systolic Thickness 2.0 cm LVPW Diastolic Thickness 1.4 cm 0.6 - 1.0 / 0.6 - 0.9 cm LVPW Systolic Thickness 1.7 cm LVOT Diameter 2.0 cm LV Ejection Fraction 2D Teich 58.3 % LA Diameter 4.2 cm M-MODE Aortic Annulus Diameter 4.6 cm LA Ao Ratio MM 1.0 MV E Point Septal Separation 1.1 cm DOPPLER RV Acceleration Time 0.1 s FINDINGS Left Ventricle The examination is poor and nearly uninterpretable. The ventricle is seen briefly in the parasternal long axis view only. There is probably normal ventricular size and function. Wall motion disturbances cannot be determined. Diastolic function cannot be determined. Right Ventricle Right ventricle not well visualized. Right Atrium Right atrium not well visualized. Left Atrium Left atrium not well visualized. Mitral Valve Mitral valve not well visualized. Aortic Valve Aortic valve is not well seen. Doppler interrogation could not be performed due to the patient's obesity. Visually, the valve does not look stenosed. There is some calcification. The 2D examination reveals the valve to open and close appropriately. Also, the M-mode evaluation appears to show the valve opening properly. Tricuspid Valve Tricuspid valve not well visualized. Pulmonic Valve Pulmonic valve not well visualized. Pericardium Aorta Aorta not well visualized. IVC Inferior vena cava not visualized. CONCLUSIONS The examination is poor and nearly uninterpretable. The ventricle is seen briefly in the parasternal long axis view only. There is probably normal ventricular size and function. Wall motion disturbances cannot be determined. Diastolic function cannot be determined. Aortic valve is not well seen. Doppler interrogation could not be performed due to the patient's obesity. Visually, the valve does not look stenosed. There is some calcification. The 2D examination reveals the valve to open and close appropriately. Also, the M-mode evaluation appears to show the valve opening properly. The previous echo done in June of this year suggested low gradient aortic valve stenosis. That cannot be corroborated on today's examination. If there is a concern for aortic stenosis the only way to sort this out is with a transesophageal echocardiogram. Dr. Andrew Quintana MD (Electronically Signed) Final Date: 15 January 2023 15:29 S
== END 2023-01-15 12:36 | disposition home or self-care (01) ==
LOC: RAD 12:35
PROVIDERS: PCP Family Medicine; Visit Provider Nurse Practitioner Family
DX: I35.0 Nonrheumatic aortic (valve) stenosis (principal)
CPT/HCPCS: 93306

== ENCOUNTER → 2023-02-11 13:06 | Outpatient (BNVA) | payer MEDICARE, OTHER, SELFPAY | PROVIDERS: PCP Family Medicine; Visit Provider Family Medicine | DX: E11.65 Type 2 diabetes mellitus with hyperglycemia (principal) | CPT/HCPCS: 85025 ==

== ENCOUNTER → 2023-03-06 10:03 | Outpatient (BNVA) | payer MEDICARE, OTHER, SELFPAY | PROVIDERS: PCP Family Medicine; Visit Provider Podiatrist Foot & Ankle Surgery | DX: L60.3 Nail dystrophy (principal); E11.42 Type 2 diabetes mellitus with diabetic polyneuropathy; I73.9 Peripheral vascular disease, unspecified; L84 Corns and callosities; E11.65 Type 2 diabetes mellitus with hyperglycemia; Z79.4 Long term (current) use of insulin | CPT/HCPCS: 11055; 11721; 99203 ==

== ENCOUNTER 2023-04-08 14:36 | Emergency (ER) | payer MEDICARE, OTHER, SELFPAY ==
[2023-04-08 14:39] VITALS: BP 165/66; PULSE 58; RESP 18; TEMP 36.7; O2SAT 94
--- NOTE | 2023-04-08 14:54 | ED_ITS ---
HPI - Fall General: Chief Complaint: Fall Stated Complaint: Fall Time Seen by Provider: 04/08/23 14:37 Source: patient and EMS Mode of arrival: EMS Limitations: no limitations History of Present Illness: 82-year-old male states he was trying to get into his truck and fell he has chronic pain from falling off a roof years ago states some some mild left knee and left shoulder pain he states he does not ambulate he has to use a power chair. Denies hitting his head denies any severe pain currently Associated symptoms-after fall: Denies abdominal pain, chest pain, headache(s) or neck pain Review of Systems Const: Denies: fever(s) or chills ENMT: Denies: throat pain or dental pain Card: Denies: chest pain Resp: Denies: dyspnea GI: Denies: abdominal pain, nausea, vomiting or diarrhea Musc: Reports: extremity pain; Denies: neck pain or back pain Skin/Breast: Denies: rash Neuro: Denies: headache(s) PFSH ED PFSH: Medical History History of spinal fracture History of rib fracture Sleep apnea Morbid obesity Atrial fibrillation Patient is vehemently opposed to take any oral anticoagulant. AV block Type 2 diabetes mellitus Hypertension Psoriatic arthritis Chronic nonmalignant pain Diabetes mellitus Osteoarthritis Facet syndrome, lumbar DDD (degenerative disc disease), lumbar Surgical History History of bilateral hip replacements History of cholecystectomy Family History Father Hypertension Stroke Mother CAD (coronary artery disease) Stroke Denies family history of Diabetes Clotting disorder Dementia Chronic kidney disease (CKD) Suicide Anesthesia complication Bleeding disorder Lung disease Cancer Social History Smoking and tobacco/nicotine status: former use of tobacco/nicotine Second hand smoke exposure: No Alcohol intake: never Substance/Drug Use: never Marital status: Number of children: 2 Current occupational status: retired 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 Physical Exam Const: COMMON NORMALS: no acute distress, patient oriented x3 and healthy appearing HENMT: COMMON NORMALS: normocephalic and atraumatic HEAD & SCALP: normocephalic and atraumatic Eye: COMMON NORMALS: Equal, round and reactive pupils present and EOMs intact bilaterally PUPIL: Yes Equal, round and reactive pupils present Neck/C-Spine: COMMON NORMALS: full ROM and supple Chest: COMMONS NORMALS: normal inspection of the chest and normal palpation of entire chest wall Resp: COMMON NORMALS: normal respiratory effort, No retractions, No use of accessory muscles and clear to auscultation bilaterally AUSCULTATION: clear to auscultation bilaterally Cardio: COMMON NORMALS: regular rate, regular rhythm and No murmurs present (Cardio) RATE: regular rate RHYTHM: regular rhythm GI: COMMON NORMALS: Normal to inspection, nondistended, normoactive bowel sounds present, Soft to palpation, non-tender and no masses PALPATION: Yes Soft to palpation Extremity: COMMON NORMALS: normal to inspection and full ROM Neuro: COMMON NORMALS: patient oriented x3, moves all extremities and no focal motor deficits Psych: COMMON NORMALS: mental status grossly normal, Normal thought process present and cooperative THOUGHT PROCESS: Normal thought process present Skin: COMMON NORMALS: no rashes or lesions noted and no wounds GENERAL SKIN EXAM: no rashes or lesions noted Course Vital Signs: Vital signs: Vital Signs Temperature 98.1 F 04/08/23 14:39 Pulse Rate 58 L 04/08/23 14:39 Respiratory Rate 18 04/08/23 14:39 Blood Pressure 165/66 04/08/23 14:39 Pulse Oximetry 94 04/08/23 14:39 Oxygen Delivery Me thod Room Air 04/08/23 14:39 MDM - Fall Medical Decision Making Patient presents here after a fall he is bilateral shoulder pain which is chronic in nature his x-rays here are normal he is not ambulatory at baseline he uses a power chair he is well-appearing here no lower extremity pain no acute complaints he is stable for discharge follow-up with PCP return if worsening he did not hit his head denies any head or neck pain Medical Records I reviewed the patient's medical records. All radiology interpretation(s) finalized by discharge Discharge Plan Discharge Patient Disposition: Home Clinical Impression: Bilateral shoulder pain Fall Qualifiers: Encounter type: initial encounter Qualified Code(s): W19.XXXA - Unspecified fall, initial encounter Condition: Stable Prescriptions: No Action oxycodone 10 mg tablet 10 mg PO QID 30 Days Qty: 120 0RF Rx Instructions: fill on or after 04/27/21 potassium chloride 10 mEq tablet extended release 30 meq PO DAILY aspirin [Adult Aspirin Regimen] 81 mg tablet,delayed release (DR/EC) 81 mg PO DAILY Qty: 30 5RF (DME) diabetic shoe See Rx Instructions .Route .MEDSUPPLY Qty: 2 0RF Rx Instructions: As directed amlodipine 10 mg tablet See Rx Instructions .ROUTE .COMPLEX Qty: 90 3RF Dose Instruction: Take 1 tablet by mouth once daily Rx Instructions: Take 1 tablet by mouth once daily furosemide 40 mg tablet 60 mg PO DAILY Qty: 45 5RF losartan 50 mg tablet See Rx Instructions .ROUTE .COMPLEX Qty: 180 0RF Dose Instruction: TAKE 1 TABLET BY MOUTH TWICE DAILY FOR BLOOD PRESSURE Rx Instructions: TAKE 1 TABLET BY MOUTH TWICE DAILY FOR BLOOD PRESSURE cilostazol 100 mg tablet See Rx Instructions .ROUTE .COMPLEX Qty: 60 3RF Dose Instruction: Take 1 tablet by mouth twice daily Rx Instructions: Take 1 tablet by mouth twice daily Novolin 70/30 U-100 Insulin 100 unit/mL (70-30) suspension See Rx Instructions .ROUTE .COMPLEX Rx Instructions: SLIDING SCALE TID Discharge Orders: Discharge ED (Routine); Ordered 04/08/23 Ordered By: Gilbert Coyle Referrals: Higinio Nelson DO [Staff Physician] - Discharge Diet: Advance as tolerated Discharge Activity: Resume usual activity Patient Instructions: Fall Prevention (ED) Coding Level of Care Code ED Salesperson Burial Needs for Jennifer Stafford
--- NOTE | 2023-04-08 14:54 | XRR_ITS ---
PROCEDURE INFORMATION: Exam: XR Left Shoulder Exam date and time: 04/08/2023 3:06 PM Age: 82 years old Clinical indication: Injury or trauma; Fall; Blunt trauma (contusions or hematomas); Shoulder; Left TECHNIQUE: Imaging protocol: Radiologic exam of the left shoulder. Views: 2 or more views. COMPARISON: US soft tissue/extremity [id number] 10/11/2019 9:28 AM FINDINGS: Bones/joints: Severe arthritis left shoulder. Moderate arthritis left AC joint. Slight superior subluxation of the left humeral head is believed to be chronic. This is often associated with rotator cuff injury. No obvious acute finding. Soft tissues: Otherwise, unremarkable. XR/XR shoulder LT min 2V* [id number] IMPRESSION: 1. Severe arthritis left shoulder. 2. Superior subluxation of the left humeral head is believed to be chronic. This is often associated with rotator cuff injury. 3. Moderate arthritis left AC joint. 4. No obvious superimposed acute findings.
--- NOTE | 2023-04-08 15:09 | XRR_ITS ---
PROCEDURE INFORMATION: Exam: XR Right Shoulder Exam date and time: 04/08/2023 3:15 PM Age: 82 years old Clinical indication: Injury or trauma; Fall; Blunt trauma (contusions or hematomas); Shoulder; Right TECHNIQUE: Imaging protocol: Radiologic exam of the right shoulder. Views: 2 or more views. COMPARISON: CR XR shoulder RT min 2V* [id number] 03/12/2018 1:23 PM FINDINGS: Bones/joints: Progression of severe arthritis right shoulder. Superior subluxation of the right humeral head is believed to be chronic. This is often associated with rotator cuff injury. This appears slightly increased. Unchanged moderate arthritis right AC joint. Otherwise, grossly unremarkable. Soft tissues: Unchanged soft tissue calcification. XR/XR shoulder RT min 2V* [id number] IMPRESSION: Slight worsening of arthritis without obvious superimposed acute findings.
== END 2023-04-08 16:24 | disposition home or self-care (01) ==
PROVIDERS: Emergency Provider Emergency Medicine
DX: M25.512 Pain in left shoulder (principal); M25.511 Pain in right shoulder; Z79.82 Long term (current) use of aspirin; Z79.4 Long term (current) use of insulin; Z87.891 Personal history of nicotine dependence; E11.9 Type 2 diabetes mellitus without complications; I10 Essential (primary) hypertension
CPT/HCPCS: 73030; 99283